=== PATIENT | male | born 1935 | race Two or more races ===

== ENCOUNTER 2016-07-17 13:11 | Outpatient (CLI) | payer MEDICARE, OTHER ==
[2016-07-17] MEDS ORDERED: CHLORHEXIDINE FL1 M1 MC (15:51)
[2016-07-17] MEDS ORDERED: PATADAY2.5 ML OP (15:51)
[2016-07-17] MEDS ORDERED: FISH OIL300 M1 PO (15:51)
[2016-07-17] MEDS ORDERED: TAMSULOSIN HCL0.4 MG ORAL (15:51)
[2016-07-17] MEDS ORDERED: NASONEX17 GM NASAL (15:51)
[2016-07-17] MEDS ORDERED: SYMBICORT 16010.2 G1 IH (15:51)
[2016-07-17] MEDS ORDERED: RESTASIS1 EACH BOTH EYES (15:51)
[2016-07-17] MEDS ORDERED: JOINT SUPPORT1 EACH PO (15:51)
[2016-07-17] MEDS ORDERED: LINZESS290 MCG PO (15:51)
[2016-07-17] MEDS ORDERED: SIMVASTATIN20 MG ORAL (15:51)
[2016-07-17] MEDS ORDERED: LORAZEPAM0.5 MG ORAL (15:51)
[2016-07-17] MEDS ORDERED: PROSCAR5 MG ORAL (15:51)
[2016-07-17] MEDS ORDERED: LEXAPRO10 MG ORAL (15:51)
[2016-07-17] MEDS ORDERED: VITAMIN D-40400 UNIT ORAL (15:51)
[2016-07-17] MEDS ORDERED: VOLTAREN100 G1 TP (15:51)
[2016-07-17] MEDS ORDERED: ASPIR 8181 MG ORAL (15:51)
[2016-07-17] MEDS ORDERED: MONTELUKAST SOD10 MG ORAL (15:51)
[2016-07-17] MEDS ORDERED: TURMERIC500 MG PO (15:51)
[2016-07-17] MEDS ORDERED: NEXIUM40 MG ORAL (15:51)
[2016-07-17] MEDS ORDERED: BENADRYL A12.5 MG/5 ORAL (15:51)
[2016-07-17] MEDS ORDERED: AMITIZA24 MCG ORAL (15:51)
[2016-07-17] MEDS ORDERED: VENTOLIN HFA18 GM INH (15:51)
--- NOTE | 2016-07-17 15:59 | GI Initial Consult Note ---
History of Present Illness General Date patient seen: July 17, 2016 Time patient seen: 13:00 Referring physician: JENNIFER Reason for Consultation: PEG EVALUATION Present Illness HPI 81 year old male being seen at [facility] presents today for evaluation for PEG. This patient has a complicated medical history, most recently dx with throat CA here with family to schedule GT placement. No general GI complaints at this time. Home Meds Reported Medications Cholecalciferol (Vitamin D3) (VITAMIN D-400*) 400 Unit Tablet, 400 UNITS ORAL DAILY, #10 TAB 0 Refills 07/17/16 Turmeric Root Extract (TURMERIC) 500 Mg Capsule, 500 MG PO, CAP 07/17/16 Tamsulosin Hcl (TAMSULOSIN HCL*) 0.4 Mg Cap.er.24h, 0.4 MG ORAL BEDTIME, CAP 07/17/16 Budesonide/Formoterol Fumarate (SYMBICORT 160-4.5 MCG INHALER) 10.2 Gm Hfa.aer.ad, 1 PUFF IH, #1 INH 0 Refills 07/17/16 Simvastatin (ZOCOR) 20 Mg Tablet, 20 MG ORAL BEDTIME, TAB 07/17/16 Cyclosporine (RESTASIS) 1 Each Droperette, 1 DROP BOTH EYES EVERY 12 HOURS, #1 EA 0 Refills 07/17/16 Olopatadine Hcl (PATADAY) 2.5 Ml Drops, 2.5 ML OP, ML 07/17/16 Esomeprazole Magnesium (NEXIUM) 40 Mg Capsule.dr, 40 MG ORAL DAILY, CAP 07/17/16 Mometasone Furoate (NASONEX) 17 Gm [place].pump, 2 SPRAYS NASAL DAILY, GM 0 Refills 07/17/16 Montelukast Sodium* (MONTELUKAST SODIUM*) 10 Mg Tablet, 10 MG ORAL DAILY, TAB 07/17/16 Lubiprostone (AMITIZA*) 24 Mcg Capsule, 24 MCG ORAL EVERY 12 HOURS, CAP 07/17/16 Lorazepam* (LORAZEPAM*) 0.5 Mg Tablet, 0.5 MG ORAL THREE TIMES A DAY, TAB 07/17/16 Linaclotide (LINZESS) 290 Mcg Capsule, 290 MCG PO, CAP 07/17/16 Escitalopram Oxalate* (LEXAPRO*) 10 Mg Tablet, 10 MG ORAL DAILY, TAB 07/17/16 Gluc/MSM/C/[place]/Manganese/Katarzyna (Joint Support Complex Softgel) 1 Each Capsule, 1 EACH PO, CAP 07/17/16 [place]-3 Fatty Acids (FISH OIL) 300 Mg Capsule, 300 MG PO, CAP 07/17/16 Finasteride* (PROSCAR*) 5 Mg Tablet, 5 MG ORAL DAILY, #30 TAB 0 Refills 07/17/16 Diclofenac Sodium (VOLTAREN) 100 Gm Gel..gram., 100 GM TP, GM 07/17/16 Chlorhexidine (CHLORHEXIDINE FLAVOR) 1 Ml Liquid, 1 ML MC, ML 07/17/16 Diphenhydramine Hcl* (BENADRYL ALLERGY*) 12.5 Mg/5 Ml Liquid, 12.5 MG ORAL Q6H Y , ML 0 Refills 07/17/16 Aspirin* (ASPIR 81*) 81 Mg Tablet.dr, 81 MG ORAL DAILY, TAB 07/17/16 Albuterol Sulfate (VENTOLIN HFA) Unknown Strength Hfa.aer.ad, INH EVERY 6 HOURS , #18 GM 0 Refills 07/17/16 Med list reviewed/reconciled: Yes Allergies: Coded Allergies: No Known Allergies (Unverified , 07/17/16) Patient History Limited by: medical condition History Provided By: Medical Record PMH Narrative CAD GERD COPD Laryngeal Squamous cell carcinoma, 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 New large RLL mass noted possible Lung CA vs metastasis Throat CA BPH Inguinal Hernia >> s/p repair May 20 2016 Constipation Hyperlipemia Severe bilateral knee OA Anxiety Asthma Iron Deficient Anemia PSHx Angioplasty Cardiac Stent Placement Hernia Repeair Inguinal Family History Narrative Mother - Asthma Social History: Reports: smoking - quit Social History Narrative Smoked less than a pack her day for 40 years, quit 10 years ago. Review of Systems All Other Systems: negative except mentioned in HPI Physical Exam T 97.2 BP 120/58 P 58 96 RA Unable to obtain weight General Appearance: well appearing, no apparent distress, alert Head: normocephalic EENT: normal ENT inspection Neck: supple Respiratory: no respiratory distress, other Cardiovascular: normal rate Gastrointestinal: soft Rectal: deferred Musculoskeletal: other - ambulation with walker Neurologic: alert, oriented x3, responsive Psychiatric: normal inspection Skin: normal inspection, normal color, no rash GI: Plan Problems: (1) Anxiety (2) Asthma (3) COPD (chronic obstructive pulmonary disease) (4) CAD (coronary artery disease) (5) BPH (benign prostatic hyperplasia) (6) GERD (gastroesophageal reflux disease) (7) Laryngeal cancer (8) Hyperlipemia (9) Encounter for PEG (percutaneous endoscopic gastrostomy) (10) Constipation Plan Pt refused to have PEG at this time, wants to wait. The patient's family all spoke together with Dr. Domingo regarding this decision on speaker phone. Family to contact us when patient has agreed. Seen with Dr. Domingo. Thank you for referring this patient. Sunita San N.P. July 17, 2016 15:59
== END 2016-07-17 13:39 | disposition home or self-care (01) ==
LOC: PAN 13:11
DX: K21.9 Gastro-esophageal reflux disease without esophagitis (principal); F41.9 Anxiety disorder, unspecified; J45.909 Unspecified asthma, uncomplicated; J44.9 Chronic obstructive pulmonary disease, unspecified; I25.10 Atherosclerotic heart disease of native coronary artery without angina pectoris; N40.0 Benign prostatic hyperplasia without lower urinary tract symptoms; C32.9 Malignant neoplasm of larynx, unspecified; E78.5 Hyperlipidemia, unspecified; K59.00 Constipation, unspecified; Z79.82 Long term (current) use of aspirin; M17.0 Bilateral primary osteoarthritis of knee; Z95.5 Presence of coronary angioplasty implant and graft; Z87.891 Personal history of nicotine dependence
CPT/HCPCS: 99201

== ENCOUNTER 2016-09-30 14:24 | Outpatient (CLI) | payer MEDICARE, OTHER ==
[~2016-09-30 14:24] MED LIST: AMITIZA24 MCG ORAL; ASPIR 8181 MG ORAL; BENADRYL A12.5 MG/5 ORAL; CHLORHEXIDINE FL1 M1 MC; FISH OIL300 M1 PO; JOINT SUPPORT1 EACH PO; LEXAPRO10 MG ORAL; LINZESS290 MCG PO; LORAZEPAM0.5 MG ORAL; MONTELUKAST SOD10 MG ORAL; NASONEX17 GM NASAL; NEXIUM40 MG ORAL; PATADAY2.5 ML OP; PROSCAR5 MG ORAL; RESTASIS1 EACH BOTH EYES; SIMVASTATIN20 MG ORAL; SYMBICORT 16010.2 G1 IH; TAMSULOSIN HCL0.4 MG ORAL; TURMERIC500 MG PO; VENTOLIN HFA18 GM INH; VITAMIN D-40400 UNIT ORAL; VOLTAREN100 G1 TP
--- NOTE | 2016-09-30 15:25 | Diagnostic Imaging Report ---
Indication: COUGH Technique: Two views of the chest Comparison: none Findings: Opacity in right lower lobe measures 5 by 1.5 cm. Is another superior surface, appears somewhat ovoid inferiorly. The lungs are equivocally minimally hyperinflated. There is mild central bronchial wall thickening. There is some scarring at the left lung base. Lungs and pleural spaces are otherwise clear. The heart size is normal. The aorta is tortuous Impression: 5 x 1.5 cm right lower lobe opacity. Appearance nonspecific. Could represent neoplasm, scarring, or atelectasis. Per discussion with referring physician, patient does have a history of lung neoplasm is improving with treatment. Correlate with any prior studies which may be available and relevant Hyperinflation, consistent with COPD No acute infiltrate Findings discussed by phone with Dr. Medina at the time of interpretation
== END 2016-09-30 16:24 | disposition home or self-care (01) ==
LOC: RAD 14:24
DX: R05 Cough (principal)
CPT/HCPCS: 71020

== ENCOUNTER 2016-10-14 14:36 | Outpatient (CLI) | payer MEDICARE, OTHER ==
--- NOTE | 2016-10-14 15:57 | Diagnostic Imaging Report ---
Indications: COUGH Technique: PA and lateral chest Findings: Comparison: 82,017 Linear densities persist in both lung bases. Focal alveolar consolidation persists in the posterior basal region of one of the lungs on lateral view. Small partially circumscribed nodule persists in/over each lung base. No new pulmonary parenchymal abnormality is demonstrated. No pleural disease is evident. Heart size and pulmonary vasculature remain within normal limits. Aortic arch calcification and tortuosity, thoracic vertebral osteophytes, cephalad subluxation of both humeri narrowing the respective subacromial spaces all unchanged. IMPRESSION: Persistent alveolar opacity in one of the lung bases on lateral view, likely right, atelectasis versus pneumonia Superimposed subsegmental atelectasis versus scarring in both lung bases, stable Bibasal symmetric small nodular densities likely nipple shadows, stable, Aortosclerosis and probable chronic hypertensive change, stable Degenerative spondylosis Evidence of bilateral chronic rotator cuff insufficiency
== END 2016-10-14 16:36 | disposition home or self-care (01) ==
LOC: RAD 14:36
DX: R05 Cough (principal); M47.9 Spondylosis, unspecified; I70.0 Atherosclerosis of aorta
CPT/HCPCS: 71020

== ENCOUNTER 2017-03-10 00:51 | Inpatient (IN) | payer MEDICARE, MEDICAID ==
[~2017-03-10] VITALS: Ht 167.6 cm; Wt 62.1 kg
[2017-03-10] VITALS (8 sets, daily range): BP systolic 101–124; BP diastolic 54–64
[2017-03-10] MEDS ORDERED: Ipratropium 0.02% Inh Soln 2.5ml UD HHN ONE (01:15)
[2017-03-10] MEDS ORDERED: Albuterol ud Inhalation HHN ONE (01:15)
--- NOTE | 2017-03-10 01:20 | Emergency Room Report ---
History of Present Illness General Chief Complaint: Dyspnea/Respdistress Source: Family Member Present Illness HPI Patient presents with paramedics for reports of shortness of breath Patient has extensive history of throat cancer and lung cancer patient is on immunotherapy Has also had previous radiation about one year ago for the throat Patient appears to have been short of breath throughout the day At nighttime appear to worsen and was brought in by paramedics at this time feels somewhat better Denies any chest pain Denies any back or flank pain reports the patient has had chronic cough no obvious change from baseline Unknown regarding fever however here the patient did have a documented fever orally Allergies: Coded Allergies: SULFA (SULFONAMIDE ANTIBIOTICS) (Unverified Allergy, Unknown, 03/10/17) Patient History Past Medical History: see triage record Pertinent Family History: none Reviewed Nursing Documentation: PMH: Agreed, PSxH: Agreed Nursing Documentation-PMH Hx Asthma: Yes Hx Cancer: Yes - LUNG /THROAT CA Review of Systems All Other Systems: negative except mentioned in HPI Physical Exam Vital Signs Date Time Temp Pulse Resp B/P (MAP) Pulse Ox O2 Delivery O2 Flow Rate FiO2 03/10/17 01:00 101.8 80 18 119/56 93 Room Air Sp02 EP Interpretation: reviewed, normal General Appearance: no apparent distress Head: normocephalic, atraumatic Eyes: bilateral eye PERRL, bilateral eye EOMI ENT: hearing grossly normal, other - No obvious stridor, poor dentition Neck: supple Respiratory: no retraction, no accessory muscle use, crackles - In lower lobes Cardiovascular #1: regular rate, rhythm, no edema Gastrointestinal: non tender, soft Musculoskeletal: normal inspection Neurologic: normal inspection, alert Skin: normal color, no rash Lymphatic: no adenopathy Medical Decision Making Diagnostic Impression: Primary Impression: Hypoxia Additional Impression: Pneumonia ER Course Patient is a fairly complex patient with multiple differential to consideration including but not limited to cardiac cardiopulmonary and vascular emergencies Patient's x-ray imaging as compared to September shows worsening markings in the lower lobes especially on the right side patient has done better with breathing treatment and oxygenation Patient also provided with steroids at this time the patient's physician was contacted on [address] reyes as there is no phone call back patient required admission and was 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 Labs Test 03/10/17 01:15 White Blood Count 14.6 K/UL (4.8-10.8) Red Blood Count 4.20 M/UL (4.70-6.10) Hemoglobin 13.6 G/DL (14.2-18.0) Hematocrit 38.7 % (42.0-52.0) Mean Corpuscular Volume 92 FL (80-99) Mean Corpuscular Hemoglobin 32.5 PG (27.0-31.0) Mean Corpuscular Hemoglobin Concent 35.3 G/DL (32.0-36.0) Red Cell Distribution Width 12.3 % (11.6-14.8) Platelet Count 190 K/UL (150-450) Mean Platelet Volume 6.8 FL (6.5-10.1) Neutrophils (%) (Auto) % (45.0-75.0) Lymphocytes (%) (Auto) % (20.0-45.0) Monocytes (%) (Auto) % (1.0-10.0) Eosinophils (%) (Auto) % (0.0-3.0) Basophils (%) (Auto) % (0.0-2.0) Sodium Level 132 MMOL/L (136-145) Potassium Level 3.6 MMOL/L (3.5-5.1) Chloride Level 98 MMOL/L (98-107) Carbon Dioxide Level 26 MMOL/L (21-32) Anion Gap 8 mmol/L (5-15) Blood Urea Nitrogen 19 mg/dL (7-18) Creatinine 0.8 MG/DL (0.55-1.30) Estimat Glomerular Filtration Rate mL/min (>60) Glucose Level 106 MG/DL (74-106) Lactic Acid Level 0.80 mmol/L (0.66-2.22) Calcium Level 9.0 MG/DL (8.5-10.1) Total Bilirubin 0.9 MG/DL (0.2-1.0) Aspartate Amino Transf (AST/SGOT) 15 U/L (15-37) Alanine Aminotransferase (ALT/SGPT) 18 U/L (12-78) Alkaline Phosphatase 64 U/L (46-116) Total Creatine Kinase 61 U/L (26-308) Creatine Kinase MB 2.5 NG/ML (0.0-3.6) Creatine Kinase MB Relative Index 4.0 Troponin I 0.014 ng/mL (0.000-0.056) Pro-B-Type Natriuretic Peptide 1065 pg/mL (0-125) Total Protein 6.9 G/DL (6.4-8.2) Albumin 3.5 G/DL (3.4-5.0) Globulin 3.4 g/dL Albumin/Globulin Ratio 1.0 (1.0-2.7) Lipase 89 U/L (73-393) Rhythm Strip Diag. Results EP Interpretation: yes Rate: 78 Rhythm: NSR, no PVC's, no ectopy Chest X-Ray Diagnostic Results Chest X-Ray Diagnostic Results : Chest X-Ray Ordered: Yes # of Views/Limited/Complete: 1 View Indication: Shortness of Breath EP Interpretation: Yes Interpretation: no effusion, no pneumothorax, other - Increased markings both lower lobes, more in the right lower lobe Impression: Other - Bilateral lower lobe markings, increased right lower lobe Electronically Signed by: Filipe Bhagat DO Last Vital Signs Date Time Temp Pulse Resp B/P (MAP) Pulse Ox O2 Delivery O2 Flow Rate FiO2 03/10/17 01:00 101.8 80 18 119/56 93 Room Air Status: improved Disposition: ADMITTED INPATIENT Condition: Serious FILIPE BHAGAT D.O. Mar 10, 2017 01:20
[2017-03-10] MEDS ORDERED: PANTOPRAZOLE SO40 MG ORAL (01:35)
[2017-03-10] MEDS ORDERED: MELOXICAM15 MG PO (01:36)
[2017-03-10 01:38] LABS: HEMATOCRIT 38.7 % (42.0-52.0); HEMOGLOBIN 13.6 G/DL (14.2-18.0); MEAN CORPUSCULAR VOLUME 92 FL (80-99); PLATELET COUNT 190 K/UL (150-450); RED CELL DISTRIBUTION WIDTH 12.3 % (11.6-14.8); WHITE BLOOD COUNT 14.6 K/UL (4.8-10.8)
[2017-03-10] MEDS ORDERED: Dexamethasone 4mg/ml vial IVP ONE (01:45)
[2017-03-10 01:47] LABS: ANION GAP 8 mmol/L (5-15); BLOOD UREA NITROGEN 19 mg/dL (7-18); CARBON DIOXIDE 26 MMOL/L (21-32); CHLORIDE 98 MMOL/L (98-107); CREATININE 0.8 MG/DL (0.55-1.30); POTASSIUM 3.6 MMOL/L (3.5-5.1); SODIUM 132 MMOL/L (136-145)
[2017-03-10 02:03] LABS: ALANINE AMINOTRANSFERASE 18 U/L (12-78); ALBUMIN 3.5 G/DL (3.4-5.0); ALKALINE PHOSPHATASE 64 U/L (46-116); ASPARTATE AMINO TRANSFERASE 15 U/L (15-37); BILIRUBIN,TOTAL 0.9 MG/DL (0.2-1.0); CKMB 2.5 NG/ML (0.0-3.6); CREATINE KINASE 61 U/L (26-308)
[2017-03-10] MEDS ORDERED: Miralax 17gm pkt ORAL PRN (07:30)
[2017-03-10] MEDS ORDERED: Nitroglycerin Subl 0.4mg tab SL PRN (07:30)
[2017-03-10] MEDS ORDERED: Mylanta II UD 30ml ORAL PRN (07:30)
[2017-03-10] MEDS ORDERED: Promethazine/Codeine 5ml UD ORAL PRN (07:30)
[2017-03-10] MEDS: Aspirin EC 81mg tab ORAL SCH (09:00)
[2017-03-10] MEDS ORDERED: Cefepime HCl 1 GM in D5W 55 ML IV SCH (09:00)
[2017-03-10] MEDS ORDERED: Vancomycin 1250mg/D5W 250ml IVPB ONE (10:30)
--- NOTE | 2017-03-10 11:43 | Consultation ---
Consult Note Consult Note ID DIC # [id number] YANDY PASTOR M.D. Mar 10, 2017 11:43
[2017-03-10] MEDS: Heparin 5000 units/ml inj SUBQ SCH ×2 (11:49→21:17)
--- NOTE | 2017-03-10 12:28 | Diagnostic Imaging Report ---
Indication: Dyspnea Comparison: 10/14/2016 A single view chest radiograph was obtained. Findings: Perihilar and basilar interstitial markings are prominent. Heart is of prominent size. Bones are osteopenic. No pleural effusion seen. IMPRESSION: Prominent basilar interstitial markings nonspecific.
[2017-03-10] MEDS ORDERED: Piperacillin/Tazobactam 3.375 GM in D5W 110 ML IVPB SCH (14:00)
--- NOTE | 2017-03-10 15:38 | History and Physical ---
History of Present Illness General Date patient seen: Mar 10, 2017 Reason for Hospitalization: Dyspnea/Respdistress Present Illness HPI 82 year old patient with extensive history of throat cancer and lung cancer presented to ER with CC of shortness of breath Patient appears to have been short of breath throughout the day. He had a temp of 101. His CXR showed chronic changes. He is admitted for w/u of his fever, especially that he is under immunotherapy for his cancer. Allergies: Coded Allergies: SULFA (SULFONAMIDE ANTIBIOTICS) (Unverified Allergy, Unknown, 03/10/17) Medication History Scheduled Albuterol Sulfate (Ventolin Hfa), Unknown Dose INH EVERY 6 HOURS, (Reported) Aspirin* (Aspir 81*), 81 MG ORAL DAILY, (Reported) Cholecalciferol (Vitamin D3) (Vitamin D-400*), 400 UNITS ORAL DAILY, (Reported) Cyclosporine (Restasis), 1 DROP BOTH EYES EVERY 12 HOURS, (Reported) Escitalopram Oxalate* (Lexapro*), 10 MG ORAL DAILY, (Reported) Esomeprazole Magnesium (Nexium), 40 MG ORAL DAILY, (Reported) Finasteride* (Proscar*), 5 MG ORAL DAILY, (Reported) Lorazepam* (Lorazepam*), 0.5 MG ORAL THREE TIMES A DAY, (Reported) Lubiprostone (Amitiza*), 24 MCG ORAL EVERY 12 HOURS, (Reported) Meloxicam* (Meloxicam*), 15 MG PO DAILY, (Reported) Mometasone Furoate (Nasonex), 2 SPRAYS NASAL DAILY, (Reported) Montelukast Sodium* (Montelukast Sodium*), 10 MG ORAL DAILY, (Reported) Pantoprazole* (Pantoprazole*), 40 MG ORAL DAILY, (Reported) Simvastatin (Zocor), 20 MG ORAL BEDTIME, (Reported) Tamsulosin Hcl (Tamsulosin Hcl*), 0.4 MG ORAL BEDTIME, (Reported) Scheduled PRN Diphenhydramine Hcl* (Benadryl Allergy*), 12.5 MG ORAL Q6H PRN, (Reported) Miscellaneous Medications Budesonide/Formoterol Fumarate (Symbicort 160-4.5 Mcg Inhaler), 1 PUFF IH, ( Reported) Chlorhexidine (Chlorhexidine Flavor), 1 ML MC, (Reported) Diclofenac Sodium (Voltaren), 100 GM TP, (Reported) Gluc/MSM/C/[place]/Manganese/Katarzyna (Joint Support Complex Softgel), 1 EACH PO, ( Reported) Linaclotide (Linzess), 290 MCG PO, (Reported) Olopatadine Hcl (Pataday), 2.5 ML OP, (Reported) [place]-3 Fatty Acids (Fish Oil), 300 MG PO, (Reported) Turmeric Root Extract (Turmeric), 500 MG PO, (Reported) Patient History Healthcare decision maker Resuscitation status Full Code Advanced Directive on File will bring the copy Past Medical/Surgical History Past Medical/Surgical History: (1) Asthma (2) CAD (coronary artery disease) (3) Laryngeal cancer (4) COPD (chronic obstructive pulmonary disease) Review of Systems All Other Systems: negative except mentioned in HPI Physical Exam General Appearance: cachetic Lines, tubes and drains: peripheral HEENT: normocephalic, atraumatic Neck: non-tender, supple Respiratory/Chest: chest wall non-tender, normal breath sounds Breasts: no masses Cardiovascular/Chest: normal rate, regular rhythm Abdomen: normal bowel sounds, non tender Genitourinary/Rectal: normal genital exam Extremities: normal range of motion, non-tender Skin Exam: normal pigmentation Last 24 Hour Vital Signs Date Time Temp Pulse Resp B/P (MAP) Pulse Ox O2 Delivery O2 Flow Rate FiO2 03/10/17 12:00 97.8 54 19 101/56 96 03/10/17 08:30 57 20 108/58 95 Nasal Cannula 3.0 28 03/10/17 08:30 57 20 108/58 95 Nasal Cannula 3.0 03/10/17 07:04 98.8 60 23 111/57 94 Nasal Cannula 3.0 03/10/17 05:04 99.0 60 20 109/54 96 Nasal Cannula 3.0 03/10/17 03:04 99.0 68 16 111/55 95 Nasal Cannula 3.0 03/10/17 01:26 80 24 94 Nasal Cannula 2.0 28 03/10/17 01:04 80 18 Room Air 03/10/17 01:04 101.8 75 18 119/56 93 Room Air 03/10/17 01:00 101.8 80 18 119/56 93 Room Air Intake and Output 03/09/17 03/10/17 19:00 07:00 Intake Total 150 ml Balance 150 ml Intake IV Total 150 ml Laboratory Tests Test 03/10/17 01:15 White Blood Count 14.6 K/UL (4.8-10.8) H Red Blood Count 4.20 M/UL (4.70-6.10) L Hemoglobin 13.6 G/DL (14.2-18.0) L Hematocrit 38.7 % (42.0-52.0) L Mean Corpuscular Volume 92 FL (80-99) Mean Corpuscular Hemoglobin 32.5 PG (27.0-31.0) H Mean Corpuscular Hemoglobin Concent 35.3 G/DL (32.0-36.0) Red Cell Distribution Width 12.3 % (11.6-14.8) Platelet Count 190 K/UL (150-450) Mean Platelet Volume 6.8 FL (6.5-10.1) Neutrophils (%) (Auto) % (45.0-75.0) Lymphocytes (%) (Auto) % (20.0-45.0) Monocytes (%) (Auto) % (1.0-10.0) Eosinophils (%) (Auto) % (0.0-3.0) Basophils (%) (Auto) % (0.0-2.0) Sodium Level 132 MMOL/L (136-145) L Potassium Level 3.6 MMOL/L (3.5-5.1) Chloride Level 98 MMOL/L (98-107) Carbon Dioxide Level 26 MMOL/L (21-32) Anion Gap 8 mmol/L (5-15) Blood Urea Nitrogen 19 mg/dL (7-18) H Creatinine 0.8 MG/DL (0.55-1.30) Estimat Glomerular Filtration Rate mL/min (>60) Glucose Level 106 MG/DL (74-106) Lactic Acid Level 0.80 mmol/L (0.66-2.22) Calcium Level 9.0 MG/DL (8.5-10.1) Total Bilirubin 0.9 MG/DL (0.2-1.0) Aspartate Amino Transf (AST/SGOT) 15 U/L (15-37) Alanine Aminotransferase (ALT/SGPT) 18 U/L (12-78) Alkaline Phosphatase 64 U/L (46-116) Total Creatine Kinase 61 U/L (26-308) Creatine Kinase MB 2.5 NG/ML (0.0-3.6) Creatine Kinase MB Relative Index 4.0 Troponin I 0.014 ng/mL (0.000-0.056) Pro-B-Type Natriuretic Peptide 1065 pg/mL (0-125) H Total Protein 6.9 G/DL (6.4-8.2) Albumin 3.5 G/DL (3.4-5.0) Globulin 3.4 g/dL Albumin/Globulin Ratio 1.0 (1.0-2.7) Lipase 89 U/L (73-393) Microbiology Date/Time Source Procedure Growth Status 03/10/17 01:18 Nasal Nares Influenza Types A,B Antigen (MARYSOL) - Final Complete Height (Feet): 5 Height (Inches): 6.00 Weight (Pounds): 137 Medications Current Medications Medications (Trade) Dose Ordered Sig/[place] Route PRN Reason Start Time Stop Time Status Last Admin Dose Admin Acetaminophen (Tylenol) 650 mg Q4H PRN ORAL fever 03/10/17 07:30 04/09/17 07:29 Al Hydroxide/Mg Hydroxide (Mylanta II) 30 ml Q6H PRN ORAL dyspepsia 03/10/17 07:30 04/09/17 07:29 Albuterol/ Ipratropium (Albuterol/ Ipratropium) 3 ml EVERY 4 HOURS PRN HHN Shortness of Breath 03/10/17 07:30 03/15/17 07:29 Aspirin (Ecotrin) 81 mg DAILY ORAL 03/10/17 09:00 04/09/17 08:59 Escitalopram Oxalate (Lexapro) 10 mg DAILY ORAL 03/10/17 09:00 04/09/17 08:59 Finasteride (Proscar) 5 mg DAILY ORAL 03/10/17 09:00 04/09/17 08:59 Fluconazole 50 ml @ 50 mls/hr Q24H IV 03/10/17 14:00 03/17/17 13:59 03/10/17 15:22 Heparin Sodium (Porcine) (Heparin 5000 units/ml) 5,000 units EVERY 12 HOURS SUBQ 03/10/17 09:00 04/09/17 08:59 03/10/17 11:49 Levofloxacin 150 ml @ 100 mls/hr Q24H IVPB 03/10/17 13:00 03/17/17 12:59 03/10/17 13:53 Nitroglycerin (Ntg) 0.4 mg Q5M PRN SL Prn Chest Pain 03/10/17 07:30 04/09/17 07:29 Ondansetron HCl (Zofran) 4 mg Q6H PRN IVP Nausea & Vomiting 03/10/17 07:30 04/09/17 07:29 Piperacillin Sod/ Tazobactam Sod 3.375 gm/Sodium Chloride 110 ml @ 27.5 mls/hr EVERY 8 HOURS IVPB 03/10/17 14:00 03/15/17 13:59 Polyethylene Glycol (Miralax) 17 gm DAILYPRN PRN ORAL Constipation 03/10/17 07:30 04/09/17 07:29 Promethazine HCl/ Codeine (Phenergan with Codeine) 5 ml Q4H PRN ORAL For Cough 03/10/17 07:30 04/09/17 07:29 Tamsulosin HCl (Flomax) 0.4 mg BEDTIME ORAL 03/10/17 21:00 04/09/17 20:59 Temazepam (Restoril) 15 mg HSPRN PRN ORAL Insomnia 03/10/17 07:30 03/17/17 07:29 Assessment/Plan Problem List: (1) Pneumonia ICD Codes: J18.9 - Pneumonia, unspecified organism SNOMED: 585478002 (2) COPD (chronic obstructive pulmonary disease) ICD Codes: J44.9 - Chronic obstructive pulmonary disease, unspecified SNOMED: 20238025 (3) Laryngeal cancer ICD Codes: C32.9 - Malignant neoplasm of larynx, unspecified SNOMED: 544269418 (4) CAD (coronary artery disease) ICD Codes: I25.10 - Atherosclerotic heart disease of [place] coronary artery without angina pectoris SNOMED: 82911579 Assessment/Plan NPO respiratory treamtnet iv abx swallow study titrate fio2 check electrolytes . QIAN GARCIA Mar 10, 2017 15:38
[2017-03-10] MEDS: Zoysn 3.37gm in NS 100ML IVPB SCH ×2 (16:43→21:16)
[2017-03-10] MEDS: Albuterol/Ipratropium 3ml neb HHN PRN (17:00)
--- NOTE | 2017-03-10 17:15 | Consultation ---
DATE OF CONSULTATION: 03/10/2017 INFECTIOUS DISEASES CONSULTATION CONSULTING PHYSICIAN: Umer Britton M.D. REFERRING PHYSICIAN: Lew Lowe M.D. REASON FOR CONSULTATION: Evaluation of patient for fever, sepsis, possible pneumonia, antibiotic management. HISTORY OF PRESENT ILLNESS: The patient is an 82-year-old male with multiple medical problems as listed below who was admitted to this medical center due to shortness of breath and weakness. The patient was found to be febrile, have leukocytosis. Infectious Diseases consultation requested for further evaluation of the patient. The patient's history is mostly obtained from the patient's at the bedside. 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 The patient developed fever on the day of admission and increased weakness. The patient has chronic cough that has worsened recently. The patient was treated recently with Augmentin for possible pneumonia by his oncologist. PAST MEDICAL HISTORY: Significant for 1. Throat and lung cancer. 2. Musculoskeletal, the patient has chronic knee pain. 3. History of depression. MEDICATIONS: IV vancomycin and cefepime. ALLERGIES: Sulfa. FAMILY HISTORY: The patient's had flu-like syndrome about two weeks prior to the admission. REVIEW OF SYSTEMS: GENERAL: The patient has weakness. PULMONARY: As mentioned above. CARDIOVASCULAR: No chest pain. GASTROINTESTINAL/ABDOMEN: No nausea, vomiting, or diarrhea. GENITOURINARY: No dysuria. MUSCULOSKELETAL: No edema. NEUROLOGIC: No history of seizure. PHYSICAL EXAMINATION: VITAL SIGNS: Temperature max 101.8 degrees, temperature 98.8 degrees, blood pressure 111/57, pulse 86, and respiratory rate 18. HEENT: The patient has oral thrush. NECK: No lymphadenopathy. CHEST: Coarse breathing sounds. HEART: S1 and S2. ABDOMEN: Soft and nontender. EXTREMITIES: No cyanosis. SKIN: The patient has sporadic rashes over the back, but are not red, suggestive of macules. NEUROLOGIC: Awake and alert, however lethargic. LABORATORY AND DIAGNOSTIC DATA: White blood cell 14, hemoglobin 13, and platelet 190. BUN 19 and creatinine 0.8. Liver function tests are unremarkable. BNP 1000. Rapid influenza test negative for A and B. Chest x-ray report is pending. ASSESSMENT: The patient is a 82-year-old male with 1. Fever. 2. Leukocytosis. 3. Possible underlying community-acquired pneumonia that was partially treated with Augmentin. 4. Rule out bacteremia and urinary tract infection. PLAN: 1. We will continue the patient on cefepime. We will add Levaquin for atypical coverage, discontinue vancomycin. 2. Monitor CBC. 3. Monitor BMP. 4. Monitor cultures (blood, urine, and sputum). 5. Monitor chest x-ray. 6. We will add Diflucan for oral thrush. 7. Based on the patient's clinical course and laboratories, we will do further recommendation. Thank you, Dr. Lowe, for allowing me to participate in the care of this patient. I will follow the patient with you during this hospitalization. Umer Britton M.D. DR: LAWSON JOB#: [id number] CC:
--- NOTE | 2017-03-10 17:44 | Cardiology Report ---
APPROVED REPORT EKG Measurement Heart [id number] Sinus rhythm with premature supraventricular complexes Septal infarct, age undetermined Abnormal ECG
[2017-03-10] MEDS: Tamsulosin 0.4mg cap ORAL SCH (21:16)
[2017-03-10] MEDS ORDERED: Vancomycin 750mg/NS 250ml IVPB SCH (22:00)
[2017-03-11 04:00] VITALS: BP 121/67
[2017-03-11] MEDS: Zoysn 3.37gm in NS 100ML IVPB SCH ×3 (04:29→23:30)
[2017-03-11 08:15] LABS: BASOPHILS % (AUTO) 0.5 % (0.0-2.0); EOSINOPHILS % (AUTO) 0.8 % (0.0-3.0); HEMATOCRIT 36.5 % (42.0-52.0); HEMOGLOBIN 12.4 G/DL (14.2-18.0); LYMPHOCYTES % (AUTO) 8.9 % (20.0-45.0); MEAN CORPUSCULAR VOLUME 94 FL (80-99); MONOCYTES % (AUTO) 8.9 % (1.0-10.0); NEUTROPHILS % (AUTO) 80.9 % (45.0-75.0); PLATELET COUNT 159 K/UL (150-450); RED BLOOD COUNT 3.87 M/UL (4.70-6.10); RED CELL DISTRIBUTION WIDTH 12.2 % (11.6-14.8); WHITE BLOOD COUNT 7.9 K/UL (4.8-10.8)
[2017-03-11 08:20] LABS: ALBUMIN 2.9 G/DL (3.4-5.0); ANION GAP 4 mmol/L (5-15); BLOOD UREA NITROGEN 15 mg/dL (7-18); CALCIUM 9.2 MG/DL (8.5-10.1); CARBON DIOXIDE 30 MMOL/L (21-32); CHLORIDE 101 MMOL/L (98-107); CREATININE 0.7 MG/DL (0.55-1.30); PHOSPHORUS 2.7 MG/DL (2.5-4.9); POTASSIUM 3.7 MMOL/L (3.5-5.1); SODIUM 135 MMOL/L (136-145)
[2017-03-11 08:28] VITALS: BP 136/63
[2017-03-11] MEDS: Aspirin EC 81mg tab ORAL SCH (08:47)
[2017-03-11] MEDS: Heparin 5000 units/ml inj SUBQ SCH ×2 (08:48→20:23)
--- NOTE | 2017-03-11 11:16 | Infectious Diseases Prog Note ---
Assessment/Plan Assessment/Plan ASSESSMENT: The patient is a 82-year-old male with Fever, SP Leukocytosis , SP Possible underlying community-acquired pneumonia vs Asp Pneum Oral thrush Rule out bacteremia and urinary tract infection. Throat and ? lung cancer Chronic knee pain depression. PLAN: We will continue Zosyn and Levaquin d# 2 / , Cont Diflucan d# 2 / ok to DC on Flagyl and Levaquin x 5 d and cont Diflucan ( Rx in chart ) Monitor CBC. Monitor BMP. Monitor cultures (blood, urine, and sputum) Monitor chest x-ray. Subjective Allergies: Coded Allergies: SULFA (SULFONAMIDE ANTIBIOTICS) (Unverified Allergy, Unknown, 03/10/17) Subjective Feeling better Objective Vital Signs Last 24 Hour Vital Signs Date Time Temp Pulse Resp B/P (MAP) Pulse Ox O2 Delivery O2 Flow Rate FiO2 03/11/17 08:28 98.2 57 20 136/63 96 03/11/17 04:00 97.5 69 21 121/67 95 03/11/17 04:00 Room Air 03/11/17 00:00 Nasal Cannula 2.0 03/10/17 20:00 97.8 54 21 117/58 94 03/10/17 20:00 Nasal Cannula 2.0 03/10/17 17:09 61 20 99 Nasal Cannula 2.0 28 03/10/17 17:00 57 20 97 Nasal Cannula 2.0 28 03/10/17 15:53 97.5 55 21 124/64 97 Nasal Cannula 2.0 03/10/17 12:00 97.8 54 19 101/56 96 Height (Feet): 5 Height (Inches): 6.00 Weight (Pounds): 137 HEENT: anicteric Cardiovascular: regular rhythm Abdomen: non distended Microbiology Date/Time Source Procedure Growth Status 03/10/17 01:20 Blood Blood Culture - Preliminary NO GROWTH AFTER 24 HOURS Resulted 03/10/17 01:15 Blood Blood Culture - Preliminary NO GROWTH AFTER 24 HOURS Resulted 03/10/17 18:00 Sputum Gram Stain - Final Resulted 03/10/17 18:00 Sputum Sputum Culture Pending Resulted 03/10/17 01:18 Nasal Nares Influenza Types A,B Antigen (MARYSOL) - Final Complete 03/10/17 12:30 Urine,Clean Catch Urine Culture - Preliminary NO GROWTH Resulted Laboratory Tests Test 03/11/17 06:54 White Blood Count 7.9 K/UL (4.8-10.8) Red Blood Count 3.87 M/UL (4.70-6.10) L Hemoglobin 12.4 G/DL (14.2-18.0) L Hematocrit 36.5 % (42.0-52.0) L Mean Corpuscular Volume 94 FL (80-99) Mean Corpuscular Hemoglobin 32.0 PG (27.0-31.0) H Mean Corpuscular Hemoglobin Concent 33.9 G/DL (32.0-36.0) Red Cell Distribution Width 12.2 % (11.6-14.8) Platelet Count 159 K/UL (150-450) Mean Platelet Volume 7.5 FL (6.5-10.1) Neutrophils (%) (Auto) 80.9 % (45.0-75.0) H Lymphocytes (%) (Auto) 8.9 % (20.0-45.0) L Monocytes (%) (Auto) 8.9 % (1.0-10.0) Eosinophils (%) (Auto) 0.8 % (0.0-3.0) Basophils (%) (Auto) 0.5 % (0.0-2.0) Sodium Level 135 MMOL/L (136-145) L Potassium Level 3.7 MMOL/L (3.5-5.1) Chloride Level 101 MMOL/L (98-107) Carbon Dioxide Level 30 MMOL/L (21-32) Anion Gap 4 mmol/L (5-15) L Blood Urea Nitrogen 15 mg/dL (7-18) Creatinine 0.7 MG/DL (0.55-1.30) Estimat Glomerular Filtration Rate mL/min (>60) Glucose Level 90 MG/DL (74-106) Calcium Level 9.2 MG/DL (8.5-10.1) Phosphorus Level 2.7 MG/DL (2.5-4.9) C-Reactive Protein, Quantitative 11.9 mg/dL (0.00-0.90) H Albumin 2.9 G/DL (3.4-5.0) L Current Medications Medications (Trade) Dose Ordered Sig/Solis Route PRN Reason Start Time Stop Time Status Last Admin Dose Admin Acetaminophen (Tylenol) 650 mg Q4H PRN ORAL fever 03/10/17 07:30 04/09/17 07:29 Al Hydroxide/Mg Hydroxide (Mylanta II) 30 ml Q6H PRN ORAL dyspepsia 03/10/17 07:30 04/09/17 07:29 Albuterol/ Ipratropium (Albuterol/ Ipratropium) 3 ml EVERY 4 HOURS PRN HHN Shortness of Breath 03/10/17 07:30 03/15/17 07:29 03/10/17 17:00 Aspirin (Ecotrin) 81 mg DAILY ORAL 03/10/17 09:00 04/09/17 08:59 03/11/17 08:47 Escitalopram Oxalate (Lexapro) 10 mg DAILY ORAL 03/10/17 09:00 04/09/17 08:59 03/11/17 08:47 Finasteride (Proscar) 5 mg DAILY ORAL 03/10/17 09:00 04/09/17 08:59 03/11/17 08:47 Fluconazole 50 ml @ 50 mls/hr Q24H IV 03/10/17 14:00 03/17/17 13:59 03/10/17 15:22 Heparin Sodium (Porcine) (Heparin 5000 units/ml) 5,000 units EVERY 12 HOURS SUBQ 03/10/17 09:00 04/09/17 08:59 03/11/17 08:48 Levofloxacin 150 ml @ 100 mls/hr Q24H IVPB 03/10/17 13:00 03/17/17 12:59 03/10/17 13:53 Nitroglycerin (Ntg) 0.4 mg Q5M PRN SL Prn Chest Pain 03/10/17 07:30 04/09/17 07:29 Ondansetron HCl (Zofran) 4 mg Q6H PRN IVP Nausea & Vomiting 03/10/17 07:30 04/09/17 07:29 Piperacillin Sod/ Tazobactam Sod 3.375 gm/Sodium Chloride 110 ml @ 27.5 mls/hr EVERY 8 HOURS IVPB 03/10/17 14:00 03/15/17 13:59 03/11/17 04:29 Polyethylene Glycol (Miralax) 17 gm DAILYPRN PRN ORAL Constipation 03/10/17 07:30 04/09/17 07:29 Promethazine HCl/ Codeine (Phenergan with Codeine) 5 ml Q4H PRN ORAL For Cough 03/10/17 07:30 04/09/17 07:29 Tamsulosin HCl (Flomax) 0.4 mg BEDTIME ORAL 03/10/17 21:00 04/09/17 20:59 03/10/17 21:16 Temazepam (Restoril) 15 mg HSPRN PRN ORAL Insomnia 03/10/17 07:30 03/17/17 07:29 03/10/17 21:16 YANDY PASTOR M.D. Mar 11, 2017 11:16
[2017-03-11 11:28] VITALS: BP 127/69
[2017-03-11 16:00] VITALS: BP 140/72
--- NOTE | 2017-03-11 16:40 | Pulmonology Progress Note ---
Assessment/Plan Problems: (1) Pneumonia (2) COPD (chronic obstructive pulmonary disease) (3) Laryngeal cancer (4) CAD (coronary artery disease) Assessment/Plan respiratory treatment continue abx check cultures titrate fio2 chest pt Subjective ROS Limited/Unobtainable: No Constitutional: Reports: no symptoms HEENT: Repors: no symptoms Respiratory: Reports: no symptoms Gastrointestinal/Abdominal: Reports: no symptoms Genitourinary: Reports: no symptoms Allergies: Coded Allergies: SULFA (SULFONAMIDE ANTIBIOTICS) (Unverified Allergy, Unknown, 03/10/17) Objective Last 24 Hour Vital Signs Date Time Temp Pulse Resp B/P (MAP) Pulse Ox O2 Delivery O2 Flow Rate FiO2 03/11/17 16:00 97.3 49 20 140/72 98 03/11/17 11:28 98.0 51 19 127/69 96 03/11/17 08:28 98.2 57 20 136/63 96 03/11/17 04:00 97.5 69 21 121/67 95 03/11/17 04:00 Room Air 03/11/17 00:00 Nasal Cannula 2.0 03/10/17 20:00 97.8 54 21 117/58 94 03/10/17 20:00 Nasal Cannula 2.0 03/10/17 17:09 61 20 99 Nasal Cannula 2.0 28 03/10/17 17:00 57 20 97 Nasal Cannula 2.0 28 Intake and Output 03/10/17 03/11/17 19:00 07:00 Intake Total 310.0 ml 137.5 ml Output Total 400 ml 600 ml Balance -90.0 ml -462.5 ml IV Total 310.0 ml 137.5 ml Other 0 ml Output Urine Total 400 ml 600 ml # Voids 1 General Appearance: WD/WN HEENT: normocephalic, atraumatic Respiratory/Chest: chest wall non-tender, lungs clear Cardiovascular: normal peripheral pulses, normal rate Abdomen: normal bowel sounds, no organomegaly, no scars Extremities: no cyanosis, no clubbing Skin: no rash 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 Lymphatic: no neck adenopathy Microbiology Date/Time Source Procedure Growth Status 03/10/17 01:20 Blood Blood Culture - Preliminary NO GROWTH AFTER 24 HOURS Resulted 03/10/17 01:15 Blood Blood Culture - Preliminary NO GROWTH AFTER 24 HOURS Resulted 03/10/17 18:00 Sputum Gram Stain - Final Resulted 03/10/17 18:00 Sputum Sputum Culture Pending Resulted 03/10/17 01:18 Nasal Nares Influenza Types A,B Antigen (MARYSOL) - Final Complete 03/10/17 12:30 Urine,Clean Catch Urine Culture - Preliminary NO GROWTH Resulted Laboratory Tests 03/11/17 06:54: White Blood Count 7.9, Red Blood Count 3.87L, Hemoglobin 12.4L, Hematocrit 36.5L , Mean Corpuscular Volume 94, Mean Corpuscular Hemoglobin 32.0H, Mean Corpuscular Hemoglobin Concent 33.9, Red Cell Distribution Width 12.2, Platelet Count 159, Mean Platelet Volume 7.5, Neutrophils (%) (Auto) 80.9H, Lymphocytes ( %) (Auto) 8.9L, Monocytes (%) (Auto) 8.9, Eosinophils (%) (Auto) 0.8, Basophils (%) (Auto) 0.5, Miscellaneous Test [Pending], Sodium Level 135L, Potassium Level 3.7, Chloride Level 101, Carbon Dioxide Level 30, Anion Gap 4L, Blood Urea Nitrogen 15, Creatinine 0.7, Estimat Glomerular Filtration Rate , Glucose Level 90, Calcium Level 9.2, Phosphorus Level 2.7, C-Reactive Protein, Quantitative 11.9H, Albumin 2.9L Current Medications Medications (Trade) Dose Ordered Sig/Solis Route PRN Reason Start Time Stop Time Status Last Admin Dose Admin Acetaminophen (Tylenol) 650 mg Q4H PRN ORAL fever 03/10/17 07:30 04/09/17 07:29 Al Hydroxide/Mg Hydroxide (Mylanta II) 30 ml Q6H PRN ORAL dyspepsia 03/10/17 07:30 04/09/17 07:29 Albuterol/ Ipratropium (Albuterol/ Ipratropium) 3 ml EVERY 4 HOURS PRN HHN Shortness of Breath 03/10/17 07:30 03/15/17 07:29 03/10/17 17:00 Aspirin (Ecotrin) 81 mg DAILY ORAL 03/10/17 09:00 04/09/17 08:59 03/11/17 08:47 Escitalopram Oxalate (Lexapro) 10 mg DAILY ORAL 03/10/17 09:00 04/09/17 08:59 03/11/17 08:47 Finasteride (Proscar) 5 mg DAILY ORAL 03/10/17 09:00 04/09/17 08:59 03/11/17 08:47 Fluconazole 50 ml @ 50 mls/hr Q24H IV 03/10/17 14:00 03/17/17 13:59 03/11/17 15:36 Heparin Sodium (Porcine) (Heparin 5000 units/ml) 5,000 units EVERY 12 HOURS SUBQ 03/10/17 09:00 04/09/17 08:59 03/11/17 08:48 Levofloxacin 150 ml @ 100 mls/hr Q24H IVPB 03/10/17 13:00 03/17/17 12:59 03/11/17 13:27 Nitroglycerin (Ntg) 0.4 mg Q5M PRN SL Prn Chest Pain 03/10/17 07:30 04/09/17 07:29 Ondansetron HCl (Zofran) 4 mg Q6H PRN IVP Nausea & Vomiting 03/10/17 07:30 04/09/17 07:29 Piperacillin Sod/ Tazobactam Sod 3.375 gm/Sodium Chloride 110 ml @ 27.5 mls/hr EVERY 8 HOURS IVPB 03/10/17 14:00 03/15/17 13:59 03/11/17 04:29 Polyethylene Glycol (Miralax) 17 gm DAILYPRN PRN ORAL Constipation 03/10/17 07:30 04/09/17 07:29 Promethazine HCl/ Codeine (Phenergan with Codeine) 5 ml Q4H PRN ORAL For Cough 03/10/17 07:30 04/09/17 07:29 Tamsulosin HCl (Flomax) 0.4 mg BEDTIME ORAL 03/10/17 21:00 04/09/17 20:59 03/10/17 21:16 Temazepam (Restoril) 15 mg HSPRN PRN ORAL Insomnia 03/10/17 07:30 03/17/17 07:29 03/10/17 21:16 QIAN GARCIA Mar 11, 2017 16:40
[2017-03-11] MEDS: Albuterol/Ipratropium 3ml neb HHN PRN (17:50)
[2017-03-11 20:04] VITALS: BP 116/63
[2017-03-11] MEDS: Tamsulosin 0.4mg cap ORAL SCH (20:16)
--- NOTE | 2017-03-11 20:29 | Consultation ---
History of Present Illness General Date patient seen: Mar 11, 2017 Chief Complaint: Dyspnea/Respdistress Present Illness HPI 82-year-old male with multiple medical problems who was admitted to this medical center due to shortness of breath and weakness. the pt is a poor historian however is alert and oriented. the pt is alert and oriented however get agitated and wants to come out bed sitter at bedside. the pt stated that he wants to go home. the pt has acks capacity to leave ama. he is illogical Allergies: Coded Allergies: SULFA (SULFONAMIDE ANTIBIOTICS) (Unverified Allergy, Unknown, 03/10/17) Medication History Scheduled Albuterol Sulfate (Ventolin Hfa), Unknown Dose INH EVERY 6 HOURS, (Reported) Aspirin* (Aspir 81*), 81 MG ORAL DAILY, (Reported) Cholecalciferol (Vitamin D3) (Vitamin D-400*), 400 UNITS ORAL DAILY, (Reported) Cyclosporine (Restasis), 1 DROP BOTH EYES EVERY 12 HOURS, (Reported) Escitalopram Oxalate* (Lexapro*), 10 MG ORAL DAILY, (Reported) Esomeprazole Magnesium (Nexium), 40 MG ORAL DAILY, (Reported) Finasteride* (Proscar*), 5 MG ORAL DAILY, (Reported) Lorazepam* (Lorazepam*), 0.5 MG ORAL THREE TIMES A DAY, (Reported) Lubiprostone (Amitiza*), 24 MCG ORAL EVERY 12 HOURS, (Reported) Meloxicam* (Meloxicam*), 15 MG PO DAILY, (Reported) Mometasone Furoate (Nasonex), 2 SPRAYS NASAL DAILY, (Reported) Montelukast Sodium* (Montelukast Sodium*), 10 MG ORAL DAILY, (Reported) Pantoprazole* (Pantoprazole*), 40 MG ORAL DAILY, (Reported) Simvastatin (Zocor), 20 MG ORAL BEDTIME, (Reported) Tamsulosin Hcl (Tamsulosin Hcl*), 0.4 MG ORAL BEDTIME, (Reported) Scheduled PRN Diphenhydramine Hcl* (Benadryl Allergy*), 12.5 MG ORAL Q6H PRN, (Reported) Miscellaneous Medications Budesonide/Formoterol Fumarate (Symbicort 160-4.5 Mcg Inhaler), 1 PUFF IH, ( Reported) Chlorhexidine (Chlorhexidine Flavor), 1 ML MC, (Reported) Diclofenac Sodium (Voltaren), 100 GM TP, (Reported) Gluc/MSM/C/Amery/Manganese/Katarzyna (Joint Support Complex Softgel), 1 EACH PO, ( Reported) Linaclotide (Linzess), 290 MCG PO, (Reported) Olopatadine Hcl (Pataday), 2.5 ML OP, (Reported) Rescue-3 Fatty Acids (Fish Oil), 300 MG PO, (Reported) Turmeric Root Extract (Turmeric), 500 MG PO, (Reported) Patient History Limited by: medical condition History Provided By: Patient, Medical Record, PMD Healthcare decision maker Resuscitation status Full Code Advanced Directive on File will bring the copy Past Medical/Surgical History Past Medical/Surgical History: (1) Anxiety (2) Hyperlipemia (3) GERD (gastroesophageal reflux disease) (4) BPH (benign prostatic hyperplasia) (5) Encounter for PEG (percutaneous endoscopic gastrostomy) (6) Constipation (7) Hypoxia (8) COPD (chronic obstructive pulmonary disease) (9) Laryngeal cancer (10) CAD (coronary artery disease) (11) Asthma (12) Pneumonia Review of Systems Psychiatric: Reports: prior hx, anxiety, depressed feelings Physical Exam General Appearance: no apparent distress, alert Neurologic: alert, oriented x 3, responsive, depressed affect Last 24 Hour Vital Signs Date Time Temp Pulse Resp B/P (MAP) Pulse Ox O2 Delivery O2 Flow Rate FiO2 03/11/17 20:04 97.0 61 18 116/63 95 03/11/17 17:52 61 18 99 Nasal Cannula 3.0 32 03/11/17 17:52 67 16 97 Nasal Cannula 3.0 32 03/11/17 17:52 67 16 Nasal Cannula 3.0 32 03/11/17 16:00 97.3 49 20 140/72 98 03/11/17 11:28 98.0 51 19 127/69 96 03/11/17 08:28 98.2 57 20 136/63 96 03/11/17 04:00 97.5 69 21 121/67 95 03/11/17 04:00 Room Air 03/11/17 00:00 Nasal Cannula 2.0 Intake and Output 03/10/17 03/11/17 19:00 07:00 Intake Total 310.0 ml 137.5 ml Output Total 400 ml 600 ml Balance -90.0 ml -462.5 ml IV Total 310.0 ml 137.5 ml Other 0 ml Output Urine Total 400 ml 600 ml # Voids 1 Laboratory Tests Test 03/11/17 06:54 White Blood Count 7.9 K/UL (4.8-10.8) Red Blood Count 3.87 M/UL (4.70-6.10) L Hemoglobin 12.4 G/DL (14.2-18.0) L Hematocrit 36.5 % (42.0-52.0) L Mean Corpuscular Volume 94 FL (80-99) Mean Corpuscular Hemoglobin 32.0 PG (27.0-31.0) H Mean Corpuscular Hemoglobin Concent 33.9 G/DL (32.0-36.0) Red Cell Distribution Width 12.2 % (11.6-14.8) Platelet Count 159 K/UL (150-450) Mean Platelet Volume 7.5 FL (6.5-10.1) Neutrophils (%) (Auto) 80.9 % (45.0-75.0) H Lymphocytes (%) (Auto) 8.9 % (20.0-45.0) L Monocytes (%) (Auto) 8.9 % (1.0-10.0) Eosinophils (%) (Auto) 0.8 % (0.0-3.0) Basophils (%) (Auto) 0.5 % (0.0-2.0) Miscellaneous Test Pending Sodium Level 135 MMOL/L (136-145) L Potassium Level 3.7 MMOL/L (3.5-5.1) Chloride Level 101 MMOL/L (98-107) Carbon Dioxide Level 30 MMOL/L (21-32) Anion Gap 4 mmol/L (5-15) L Blood Urea Nitrogen 15 mg/dL (7-18) Creatinine 0.7 MG/DL (0.55-1.30) Estimat Glomerular Filtration Rate mL/min (>60) Glucose Level 90 MG/DL (74-106) Calcium Level 9.2 MG/DL (8.5-10.1) Phosphorus Level 2.7 MG/DL (2.5-4.9) C-Reactive Protein, Quantitative 11.9 mg/dL (0.00-0.90) H Albumin 2.9 G/DL (3.4-5.0) L Height (Feet): 5 Height (Inches): 6.00 Weight (Pounds): 137 Medications Current Medications Medications (Trade) Dose Ordered Sig/Solis Route PRN Reason Start Time Stop Time Status Last Admin Dose Admin Acetaminophen (Tylenol) 650 mg Q4H PRN ORAL fever 03/10/17 07:30 04/09/17 07:29 Al Hydroxide/Mg Hydroxide (Mylanta II) 30 ml Q6H PRN ORAL dyspepsia 03/10/17 07:30 04/09/17 07:29 Albuterol/ Ipratropium (Albuterol/ Ipratropium) 3 ml EVERY 4 HOURS PRN HHN Shortness of Breath 03/10/17 07:30 03/15/17 07:29 03/11/17 17:50 Aspirin (Ecotrin) 81 mg DAILY ORAL 03/10/17 09:00 04/09/17 08:59 03/11/17 08:47 Escitalopram Oxalate (Lexapro) 10 mg DAILY ORAL 03/10/17 09:00 04/09/17 08:59 03/11/17 08:47 Finasteride (Proscar) 5 mg DAILY ORAL 03/10/17 09:00 04/09/17 08:59 03/11/17 08:47 Fluconazole 50 ml @ 50 mls/hr Q24H IV 03/10/17 14:00 03/17/17 13:59 03/11/17 15:36 Heparin Sodium (Porcine) (Heparin 5000 units/ml) 5,000 units EVERY 12 HOURS SUBQ 03/10/17 09:00 04/09/17 08:59 03/11/17 20:23 Levofloxacin 150 ml @ 100 mls/hr Q24H IVPB 03/10/17 13:00 03/17/17 12:59 03/11/17 13:27 Nitroglycerin (Ntg) 0.4 mg Q5M PRN SL Prn Chest Pain 03/10/17 07:30 04/09/17 07:29 Ondansetron HCl (Zofran) 4 mg Q6H PRN IVP Nausea & Vomiting 03/10/17 07:30 04/09/17 07:29 Piperacillin Sod/ Tazobactam Sod 3.375 gm/Sodium Chloride 110 ml @ 27.5 mls/hr EVERY 8 HOURS IVPB 03/10/17 14:00 03/15/17 13:59 03/11/17 17:09 Polyethylene Glycol (Miralax) 17 gm DAILYPRN PRN ORAL Constipation 03/10/17 07:30 04/09/17 07:29 Promethazine HCl/ Codeine (Phenergan with Codeine) 5 ml Q4H PRN ORAL For Cough 03/10/17 07:30 04/09/17 07:29 Tamsulosin HCl (Flomax) 0.4 mg BEDTIME ORAL 03/10/17 21:00 04/09/17 20:59 03/11/17 20:16 Temazepam (Restoril) 15 mg HSPRN PRN ORAL Insomnia 03/10/17 07:30 03/17/17 07:29 03/10/17 21:16 Assessment/Plan Status: stable, progressing Assessment/Plan anxiety d/o Lexapro 10mg Catie Ruffin M.D. Mar 11, 2017 20:29
[2017-03-11] MEDS ORDERED: Zosyn 3.375gm inj ONE (23:20)
[2017-03-12] VITALS: BP 107/54
[2017-03-12] MEDS ORDERED: Zosyn 3.375gm inj ONE (03:41)
[2017-03-12 04:00] VITALS: BP 128/66
[2017-03-12] MEDS: Zoysn 3.37gm in NS 100ML IVPB SCH ×3 (05:20→23:40)
[2017-03-12 08:00] VITALS: BP 121/66
[2017-03-12 08:07] LABS: BASOPHILS % (AUTO) 0.7 % (0.0-2.0); EOSINOPHILS % (AUTO) 3.2 % (0.0-3.0); HEMATOCRIT 34.3 % (42.0-52.0); HEMOGLOBIN 11.9 G/DL (14.2-18.0); LYMPHOCYTES % (AUTO) 7.9 % (20.0-45.0); MEAN CORPUSCULAR VOLUME 94 FL (80-99); MONOCYTES % (AUTO) 8.6 % (1.0-10.0); NEUTROPHILS % (AUTO) 79.6 % (45.0-75.0); PLATELET COUNT 150 K/UL (150-450); RED BLOOD COUNT 3.64 M/UL (4.70-6.10); RED CELL DISTRIBUTION WIDTH 12.3 % (11.6-14.8)
[2017-03-12 08:37] LABS: ALANINE AMINOTRANSFERASE 10 U/L (12-78); ALBUMIN 2.7 G/DL (3.4-5.0); ALBUMIN/GLOBULIN RATIO 0.9 (1.0-2.7); ALKALINE PHOSPHATASE 45 U/L (46-116); ANION GAP 8 mmol/L (5-15); ASPARTATE AMINO TRANSFERASE 13 U/L (15-37); BILIRUBIN,TOTAL 0.6 MG/DL (0.2-1.0); BLOOD UREA NITROGEN 10 mg/dL (7-18); CALCIUM 8.8 MG/DL (8.5-10.1); CARBON DIOXIDE 27 MMOL/L (21-32); CHLORIDE 100 MMOL/L (98-107); CREATININE 0.8 MG/DL (0.55-1.30); PHOSPHORUS 3.1 MG/DL (2.5-4.9); POTASSIUM 3.5 MMOL/L (3.5-5.1); SODIUM 135 MMOL/L (136-145)
[2017-03-12] MEDS: Heparin 5000 units/ml inj SUBQ SCH ×2 (09:00→20:20)
[2017-03-12] MEDS: Aspirin EC 81mg tab ORAL SCH (09:29)
[2017-03-12] MEDS: LORazepam 1mg tab ORAL PRN (11:02)
[2017-03-12 12:00] VITALS: BP 130/70
[2017-03-12 16:00] VITALS: BP 117/76
--- NOTE | 2017-03-12 16:23 | Pulmonology Progress Note ---
Assessment/Plan Problems: (1) Pneumonia (2) COPD (chronic obstructive pulmonary disease) (3) Laryngeal cancer (4) CAD (coronary artery disease) Assessment/Plan respiratory treatment continue abx check cultures titrate fio2 chest pt all notes and meds reviewed Subjective ROS Limited/Unobtainable: No Constitutional: Reports: no symptoms HEENT: Repors: no symptoms Allergies: Coded Allergies: SULFA (SULFONAMIDE ANTIBIOTICS) (Unverified Allergy, Unknown, 03/10/17) Objective Last 24 Hour Vital Signs Date Time Temp Pulse Resp B/P (MAP) Pulse Ox O2 Delivery O2 Flow Rate FiO2 03/12/17 16:00 97.3 68 18 117/76 95 Nasal Cannula 2.0 03/12/17 12:00 97.3 57 18 130/70 96 Nasal Cannula 2.0 03/12/17 08:00 97.5 60 17 121/66 96 Nasal Cannula 2.0 03/12/17 04:00 97.0 50 20 128/66 97 03/12/17 00:00 Nasal Cannula 2.0 03/12/17 00:00 97.0 52 20 107/54 95 03/11/17 20:04 97.0 61 18 116/63 95 03/11/17 20:00 Nasal Cannula 2.0 03/11/17 17:52 61 18 99 Nasal Cannula 3.0 32 03/11/17 17:52 67 16 97 Nasal Cannula 3.0 32 03/11/17 17:52 67 16 Nasal Cannula 3.0 32 Intake and Output 03/11/17 03/12/17 19:00 07:00 Intake Total 797.5 ml 920.0 ml Output Total 400 ml 700 ml Balance 397.5 ml 220.0 ml Intake Oral 570 ml 700 ml IV Total 227.5 ml 220.0 ml Output Urine Total 400 ml 700 ml # Voids 2 # Bowel Movements 1 1 Objective General Appearance: WD/WN HEENT: normocephalic, atraumatic Respiratory/Chest: chest wall non-tender, lungs clear Cardiovascular: normal peripheral pulses, normal rate Abdomen: normal bowel sounds, soft, non tender Genitourinary: normal external genitalia Extremities: no cyanosis 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, no motor/sensory deficits Lymphatic: no neck adenopathy Microbiology Date/Time Source Procedure Growth Status 03/10/17 01:20 Blood Blood Culture - Preliminary NO GROWTH AFTER 48 HOURS Resulted 03/10/17 01:15 Blood Blood Culture - Preliminary NO GROWTH AFTER 48 HOURS Resulted 03/10/17 18:00 Sputum Gram Stain - Final Complete 03/10/17 18:00 Sputum Culture - Final Sandra Albicans Usual Upper Respiratory Estrella Complete 03/10/17 01:18 Nasal Nares Influenza Types A,B Antigen (MARYSOL) - Final Complete 03/10/17 12:30 Urine,Clean Catch Urine Culture - Preliminary Mixed Gram Positive Organism Resulted Laboratory Tests 03/12/17 07:00: White Blood Count 7.0, Red Blood Count 3.64L, Hemoglobin 11.9L, Hematocrit 34.3L , Mean Corpuscular Volume 94, Mean Corpuscular Hemoglobin 32.6H, Mean Corpuscular Hemoglobin Concent 34.5, Red Cell Distribution Width 12.3, Platelet Count 150, Mean Platelet Volume 7.0, Neutrophils (%) (Auto) 79.6H, Lymphocytes ( %) (Auto) 7.9L, Monocytes (%) (Auto) 8.6, Eosinophils (%) (Auto) 3.2H, Basophils (%) (Auto) 0.7, Sodium Level 135L, Potassium Level 3.5, Chloride Level 100, Carbon Dioxide Level 27, Anion Gap 8, Blood Urea Nitrogen 10, Creatinine 0.8, Estimat Glomerular Filtration Rate , Glucose Level 108H, Calcium Level 8.8, Phosphorus Level 3.1, Magnesium Level 1.6L, Total Bilirubin 0.6, Aspartate Amino Transf (AST/SGOT) 13L, Alanine Aminotransferase (ALT/SGPT) 10L, Alkaline Phosphatase 45L, Total Protein 5.8L, Albumin 2.7L, Globulin 3.1, Albumin/Globulin Ratio 0.9L Current Medications Medications (Trade) Dose Ordered Sig/Solis Route PRN Reason Start Time Stop Time Status Last Admin Dose Admin Acetaminophen (Tylenol) 650 mg Q4H PRN ORAL fever 03/10/17 07:30 04/09/17 07:29 Al Hydroxide/Mg Hydroxide (Mylanta II) 30 ml Q6H PRN ORAL dyspepsia 03/10/17 07:30 04/09/17 07:29 Albuterol/ Ipratropium (Albuterol/ Ipratropium) 3 ml EVERY 4 HOURS PRN HHN Shortness of Breath 03/10/17 07:30 03/15/17 07:29 03/11/17 17:50 Aspirin (Ecotrin) 81 mg DAILY ORAL 03/10/17 09:00 04/09/17 08:59 03/12/17 09:29 Escitalopram Oxalate (Lexapro) 20 mg DAILY ORAL 03/12/17 09:00 04/11/17 08:59 03/12/17 09:30 Finasteride (Proscar) 5 mg DAILY ORAL 03/10/17 09:00 04/09/17 08:59 03/12/17 09:00 Fluconazole 50 ml @ 50 mls/hr Q24H IV 03/10/17 14:00 03/17/17 13:59 03/12/17 14:44 Heparin Sodium (Porcine) (Heparin 5000 units/ml) 5,000 units EVERY 12 HOURS SUBQ 03/10/17 09:00 04/09/17 08:59 03/11/17 20:23 Levofloxacin 150 ml @ 100 mls/hr Q24H IVPB 03/10/17 13:00 03/17/17 12:59 03/12/17 13:23 Lorazepam (Ativan) 1 mg Q6H PRN ORAL For Anxiety 03/11/17 21:30 03/18/17 21:29 03/12/17 11:02 Nitroglycerin (Ntg) 0.4 mg Q5M PRN SL Prn Chest Pain 03/10/17 07:30 04/09/17 07:29 Ondansetron HCl (Zofran) 4 mg Q6H PRN IVP Nausea & Vomiting 03/10/17 07:30 04/09/17 07:29 Piperacillin Sod/ Tazobactam Sod 3.375 gm/Sodium Chloride 110 ml @ 27.5 mls/hr EVERY 8 HOURS IVPB 03/10/17 14:00 03/15/17 13:59 03/12/17 16:05 Polyethylene Glycol (Miralax) 17 gm DAILYPRN PRN ORAL Constipation 03/10/17 07:30 04/09/17 07:29 Promethazine HCl/ Codeine (Phenergan with Codeine) 5 ml Q4H PRN ORAL For Cough 03/10/17 07:30 04/09/17 07:29 03/12/17 09:30 Tamsulosin HCl (Flomax) 0.4 mg BEDTIME ORAL 03/10/17 21:00 04/09/17 20:59 03/11/17 20:16 Temazepam (Restoril) 15 mg HSPRN PRN ORAL Insomnia 03/10/17 07:30 03/17/17 07:29 03/11/17 21:52 QIAN GARCIA Mar 12, 2017 16:23
[2017-03-12 20:00] VITALS: BP 119/81
[2017-03-12] MEDS: Tamsulosin 0.4mg cap ORAL SCH (20:19)
--- NOTE | 2017-03-12 20:39 | Infectious Diseases Prog Note ---
Assessment/Plan Assessment/Plan ASSESSMENT: The patient is a 82-year-old male with Fever, SP Leukocytosis , SP Possible underlying community-acquired pneumonia vs Asp Pneum Scx: NL Fl; Sandra: colonizer Oral thrush improving doubt urinary tract infection. Ucx mixed growth CRP 11.9 Throat and ? lung cancer Chronic knee pain depression. PLAN: We will continue Zosyn and Levaquin d# 3 / 7 , Cont Diflucan d# 3 / 10 ok to DC on Flagyl and Levaquin x 5 d and cont Diflucan ( Rx in chart ) Monitor CBC. Monitor BMP. Monitor cultures (blood ) Monitor chest x-ray. Subjective Constitutional: Denies: no symptoms, fever, chills, fatigue, anorexia, drenching sweats, other Allergies: Coded Allergies: SULFA (SULFONAMIDE ANTIBIOTICS) (Unverified Allergy, Unknown, 03/10/17) Subjective confused Objective Vital Signs Last 24 Hour Vital Signs Date Time Temp Pulse Resp B/P (MAP) Pulse Ox O2 Delivery O2 Flow Rate FiO2 03/12/17 16:00 97.3 68 18 117/76 95 Nasal Cannula 2.0 03/12/17 12:00 97.3 57 18 130/70 96 Nasal Cannula 2.0 03/12/17 08:00 97.5 60 17 121/66 96 Nasal Cannula 2.0 03/12/17 04:00 97.0 50 20 128/66 97 03/12/17 00:00 Nasal Cannula 2.0 03/12/17 00:00 97.0 52 20 107/54 95 Height (Feet): 5 Height (Inches): 6.00 Weight (Pounds): 137 HEENT: atraumatic Respiratory/Chest: no respiratory distress Cardiovascular: normal rate Abdomen: non distended Microbiology Date/Time Source Procedure Growth Status 03/10/17 01:20 Blood Blood Culture - Preliminary NO GROWTH AFTER 48 HOURS Resulted 03/10/17 01:15 Blood Blood Culture - Preliminary NO GROWTH AFTER 48 HOURS Resulted 03/10/17 18:00 Sputum Gram Stain - Final Complete 03/10/17 18:00 Sputum Culture - Final Sandra Albicans Usual Upper Respiratory Estrella Complete 03/10/17 01:18 Nasal Nares Influenza Types A,B Antigen (MARYSOL) - Final Complete 03/10/17 12:30 Urine,Clean Catch Urine Culture - Preliminary Mixed Gram Positive Organism Resulted Laboratory Tests Test 03/12/17 07:00 White Blood Count 7.0 K/UL (4.8-10.8) Red Blood Count 3.64 M/UL (4.70-6.10) L Hemoglobin 11.9 G/DL (14.2-18.0) L Hematocrit 34.3 % (42.0-52.0) L Mean Corpuscular Volume 94 FL (80-99) Mean Corpuscular Hemoglobin 32.6 PG (27.0-31.0) H Mean Corpuscular Hemoglobin Concent 34.5 G/DL (32.0-36.0) Red Cell Distribution Width 12.3 % (11.6-14.8) Platelet Count 150 K/UL (150-450) Mean Platelet Volume 7.0 FL (6.5-10.1) Neutrophils (%) (Auto) 79.6 % (45.0-75.0) H Lymphocytes (%) (Auto) 7.9 % (20.0-45.0) L Monocytes (%) (Auto) 8.6 % (1.0-10.0) Eosinophils (%) (Auto) 3.2 % (0.0-3.0) H Basophils (%) (Auto) 0.7 % (0.0-2.0) Sodium Level 135 MMOL/L (136-145) L Potassium Level 3.5 MMOL/L (3.5-5.1) Chloride Level 100 MMOL/L (98-107) Carbon Dioxide Level 27 MMOL/L (21-32) Anion Gap 8 mmol/L (5-15) Blood Urea Nitrogen 10 mg/dL (7-18) Creatinine 0.8 MG/DL (0.55-1.30) Estimat Glomerular Filtration Rate mL/min (>60) Glucose Level 108 MG/DL (74-106) H Calcium Level 8.8 MG/DL (8.5-10.1) Phosphorus Level 3.1 MG/DL (2.5-4.9) Magnesium Level 1.6 MG/DL (1.8-2.4) L Total Bilirubin 0.6 MG/DL (0.2-1.0) Aspartate Amino Transf (AST/SGOT) 13 U/L (15-37) L Alanine Aminotransferase (ALT/SGPT) 10 U/L (12-78) L Alkaline Phosphatase 45 U/L (46-116) L Total Protein 5.8 G/DL (6.4-8.2) L Albumin 2.7 G/DL (3.4-5.0) L Globulin 3.1 g/dL Albumin/Globulin Ratio 0.9 (1.0-2.7) L Current Medications Medications (Trade) Dose Ordered Sig/Solis Route PRN Reason Start Time Stop Time Status Last Admin Dose Admin Acetaminophen (Tylenol) 650 mg Q4H PRN ORAL fever 03/10/17 07:30 04/09/17 07:29 Al Hydroxide/Mg Hydroxide (Mylanta II) 30 ml Q6H PRN ORAL dyspepsia 03/10/17 07:30 04/09/17 07:29 Albuterol/ Ipratropium (Albuterol/ Ipratropium) 3 ml EVERY 4 HOURS PRN HHN Shortness of Breath 03/10/17 07:30 03/15/17 07:29 03/11/17 17:50 Aspirin (Ecotrin) 81 mg DAILY ORAL 03/10/17 09:00 04/09/17 08:59 03/12/17 09:29 Escitalopram Oxalate (Lexapro) 20 mg DAILY ORAL 03/12/17 09:00 04/11/17 08:59 03/12/17 09:30 Finasteride (Proscar) 5 mg DAILY ORAL 03/10/17 09:00 04/09/17 08:59 03/12/17 09:00 Fluconazole 50 ml @ 50 mls/hr Q24H IV 03/10/17 14:00 03/17/17 13:59 03/12/17 14:44 Heparin Sodium (Porcine) (Heparin 5000 units/ml) 5,000 units EVERY 12 HOURS SUBQ 03/10/17 09:00 04/09/17 08:59 03/12/17 20:20 Levofloxacin 150 ml @ 100 mls/hr Q24H IVPB 03/10/17 13:00 03/17/17 12:59 03/12/17 13:23 Lorazepam (Ativan) 1 mg Q6H PRN ORAL For Anxiety 03/11/17 21:30 03/18/17 21:29 03/12/17 11:02 Nitroglycerin (Ntg) 0.4 mg Q5M PRN SL Prn Chest Pain 03/10/17 07:30 04/09/17 07:29 Ondansetron HCl (Zofran) 4 mg Q6H PRN IVP Nausea & Vomiting 03/10/17 07:30 04/09/17 07:29 Piperacillin Sod/ Tazobactam Sod 3.375 gm/Sodium Chloride 110 ml @ 27.5 mls/hr EVERY 8 HOURS IVPB 03/10/17 14:00 03/15/17 13:59 03/12/17 16:05 Polyethylene Glycol (Miralax) 17 gm DAILYPRN PRN ORAL Constipation 03/10/17 07:30 04/09/17 07:29 Promethazine HCl/ Codeine (Phenergan with Codeine) 5 ml Q4H PRN ORAL For Cough 03/10/17 07:30 04/09/17 07:29 03/12/17 09:30 Tamsulosin HCl (Flomax) 0.4 mg BEDTIME ORAL 03/10/17 21:00 04/09/17 20:59 03/12/17 20:19 Temazepam (Restoril) 15 mg HSPRN PRN ORAL Insomnia 03/10/17 07:30 03/17/17 07:29 03/11/17 21:52 YANDY PASTOR M.D. Mar 12, 2017 20:39
[2017-03-13] VITALS: BP 121/73
[2017-03-13 04:00] VITALS: BP 140/73
[2017-03-13] MEDS: Zoysn 3.37gm in NS 100ML IVPB SCH ×3 (05:38→23:01)
--- NOTE | 2017-03-13 07:43 | Pulmonology Progress Note ---
Assessment/Plan Assessment/Plan ASSESSMENT possible sepsis( initial fever, leukocytosis, now leukopenia) PNA COPD Oral thrush Laryngeal cancer CAD anxiety disorder BPH chronic knee pain PLAN OF CARE MS floor O2, titrate HHN and CPT Fluconazole and empiric abx ID follows Sputum cx + Sandra,-colonizer as per ID urine cx +mixed GPO, blood cx prel negative Fup with CXR in am low dose steroids a/tussive prn DVT prophylaxis Pain management Bowel regimen Continue Flomax continue ASA psych follows started on Lexapro case discussed and evaluated by supervising physician Subjective Allergies: Coded Allergies: SULFA (SULFONAMIDE ANTIBIOTICS) (Unverified Allergy, Unknown, 03/10/17) Subjective afebrilem no leukoctytosis + coughinh, no hemooptysis, +whezing Objective Last 24 Hour Vital Signs Date Time Temp Pulse Resp B/P (MAP) Pulse Ox O2 Delivery O2 Flow Rate FiO2 03/13/17 04:00 97.4 53 20 140/73 97 Nasal Cannula 2.0 03/13/17 00:00 97.5 57 20 121/73 98 Nasal Cannula 2.0 03/12/17 23:19 Nasal Cannula 2.0 28 03/12/17 20:00 97.2 62 20 119/81 95 Nasal Cannula 2.0 03/12/17 16:00 97.3 68 18 117/76 95 Nasal Cannula 2.0 03/12/17 12:00 97.3 57 18 130/70 96 Nasal Cannula 2.0 03/12/17 08:00 97.5 60 17 121/66 96 Nasal Cannula 2.0 Intake and Output 03/12/17 03/13/17 19:00 07:00 Intake Total 1520 ml 617.5 ml Output Total 1375 ml Balance 145 ml 617.5 ml Intake Oral 1520 ml 480 ml IV Total 137.5 ml Output Urine Total 1375 ml # Voids 2 1 # Bowel Movements 1 General Appearance: no acute distress HEENT: normocephalic, atraumatic, anicteric, mucous membranes moist Respiratory/Chest: rhonchi - few scattered rhonchi, expiratory wheezing - in anterior and posterior jama, Cardiovascular: no JVD Abdomen: soft, non tender, non distended Extremities: no edema, pedal pulses normal Neurologic/Psychiatric: alert, responsive Musculoskeletal: atrophy - BLE Microbiology Date/Time Source Procedure Growth Status 03/10/17 18:00 Sputum Gram Stain - Final Complete 03/10/17 18:00 Sputum Culture - Final Sandra Albicans Usual Upper Respiratory Estrella Complete 03/10/17 12:30 Urine,Clean Catch Urine Culture - Final Mixed Gram Positive Organism Complete Current Medications Medications (Trade) Dose Ordered Sig/Solis Route PRN Reason Start Time Stop Time Status Last Admin Dose Admin Acetaminophen (Tylenol) 650 mg Q4H PRN ORAL fever 03/10/17 07:30 04/09/17 07:29 Al Hydroxide/Mg Hydroxide (Mylanta II) 30 ml Q6H PRN ORAL dyspepsia 03/10/17 07:30 04/09/17 07:29 Albuterol/ Ipratropium (Albuterol/ Ipratropium) 3 ml EVERY 4 HOURS PRN HHN Shortness of Breath 03/10/17 07:30 03/15/17 07:29 03/11/17 17:50 Aspirin (Ecotrin) 81 mg DAILY ORAL 03/10/17 09:00 04/09/17 08:59 03/12/17 09:29 Escitalopram Oxalate (Lexapro) 20 mg DAILY ORAL 03/12/17 09:00 04/11/17 08:59 03/12/17 09:30 Finasteride (Proscar) 5 mg DAILY ORAL 03/10/17 09:00 04/09/17 08:59 03/12/17 09:00 Fluconazole 50 ml @ 50 mls/hr Q24H IV 03/10/17 14:00 03/17/17 13:59 03/12/17 14:44 Heparin Sodium (Porcine) (Heparin 5000 units/ml) 5,000 units EVERY 12 HOURS SUBQ 03/10/17 09:00 04/09/17 08:59 03/12/17 20:20 Levofloxacin 150 ml @ 100 mls/hr Q24H IVPB 03/10/17 13:00 03/17/17 12:59 03/12/17 13:23 Lorazepam (Ativan) 1 mg Q6H PRN ORAL For Anxiety 03/11/17 21:30 03/18/17 21:29 03/12/17 11:02 Nitroglycerin (Ntg) 0.4 mg Q5M PRN SL Prn Chest Pain 03/10/17 07:30 04/09/17 07:29 Ondansetron HCl (Zofran) 4 mg Q6H PRN IVP Nausea & Vomiting 03/10/17 07:30 04/09/17 07:29 Piperacillin Sod/ Tazobactam Sod 3.375 gm/Sodium Chloride 110 ml @ 27.5 mls/hr EVERY 8 HOURS IVPB 03/10/17 14:00 03/15/17 13:59 03/13/17 05:38 Polyethylene Glycol (Miralax) 17 gm DAILYPRN PRN ORAL Constipation 03/10/17 07:30 04/09/17 07:29 Promethazine HCl/ Codeine (Phenergan with Codeine) 5 ml Q4H PRN ORAL For Cough 03/10/17 07:30 04/09/17 07:29 03/12/17 09:30 Tamsulosin HCl (Flomax) 0.4 mg BEDTIME ORAL 03/10/17 21:00 04/09/17 20:59 03/12/17 20:19 Temazepam (Restoril) 15 mg HSPRN PRN ORAL Insomnia 03/10/17 07:30 03/17/17 07:29 03/11/17 21:52 Rubén ([facility])Kathi NP Mar 13, 2017 07:43
[2017-03-13 08:00] VITALS: BP 124/62
[2017-03-13] MEDS: Heparin 5000 units/ml inj SUBQ SCH ×2 (09:00→20:31)
[2017-03-13] MEDS: Aspirin EC 81mg tab ORAL SCH (09:16)
--- NOTE | 2017-03-13 10:49 | Infectious Diseases Prog Note ---
Assessment/Plan Assessment/Plan ASSESSMENT: The patient is a 82-year-old male with Fever, SP Leukocytosis , SP Possible underlying community-acquired pneumonia vs Asp Pneum Scx: NL Fl; Sandra: colonizer Oral thrush improving doubt urinary tract infection. Ucx mixed growth CRP 11.9 Throat and ? lung cancer Chronic knee pain depression. PLAN: We will continue Zosyn and Levaquin d# 4 / 7 , Cont Diflucan d# 4 / 10 ok to DC on Flagyl and Levaquin x 5 d and cont Diflucan ( Rx in chart ) Monitor CBC. Monitor BMP. Monitor cultures (blood) Monitor chest x-ray. Subjective Constitutional: Denies: no symptoms, fever, chills, fatigue, anorexia, drenching sweats, other Allergies: Coded Allergies: SULFA (SULFONAMIDE ANTIBIOTICS) (Unverified Allergy, Unknown, 03/10/17) Subjective confused Objective Vital Signs Last 24 Hour Vital Signs Date Time Temp Pulse Resp B/P (MAP) Pulse Ox O2 Delivery O2 Flow Rate FiO2 03/13/17 08:00 97.1 67 18 124/62 94 03/13/17 07:40 Nasal Cannula 2.0 28 03/13/17 04:00 97.4 53 20 140/73 97 Nasal Cannula 2.0 03/13/17 00:00 97.5 57 20 121/73 98 Nasal Cannula 2.0 03/12/17 23:19 Nasal Cannula 2.0 28 03/12/17 20:00 97.2 62 20 119/81 95 Nasal Cannula 2.0 03/12/17 16:00 97.3 68 18 117/76 95 Nasal Cannula 2.0 03/12/17 12:00 97.3 57 18 130/70 96 Nasal Cannula 2.0 Height (Feet): 5 Height (Inches): 6.00 Weight (Pounds): 137 HEENT: atraumatic Respiratory/Chest: no respiratory distress Cardiovascular: regular rhythm Abdomen: soft, non tender Microbiology Date/Time Source Procedure Growth Status 03/10/17 18:00 Sputum Gram Stain - Final Complete 03/10/17 18:00 Sputum Culture - Final Sandra Albicans Usual Upper Respiratory Estrella Complete 03/10/17 12:30 Urine,Clean Catch Urine Culture - Final Mixed Gram Positive Organism Complete Current Medications Medications (Trade) Dose Ordered Sig/Solis Route PRN Reason Start Time Stop Time Status Last Admin Dose Admin Acetaminophen (Tylenol) 650 mg Q4H PRN ORAL fever 03/10/17 07:30 04/09/17 07:29 Al Hydroxide/Mg Hydroxide (Mylanta II) 30 ml Q6H PRN ORAL dyspepsia 03/10/17 07:30 04/09/17 07:29 Albuterol/ Ipratropium (Albuterol/ Ipratropium) 3 ml EVERY 4 HOURS PRN HHN Shortness of Breath 03/10/17 07:30 03/15/17 07:29 03/11/17 17:50 Aspirin (Ecotrin) 81 mg DAILY ORAL 03/10/17 09:00 04/09/17 08:59 03/13/17 09:16 Escitalopram Oxalate (Lexapro) 20 mg DAILY ORAL 03/12/17 09:00 04/11/17 08:59 03/13/17 09:16 Finasteride (Proscar) 5 mg DAILY ORAL 03/10/17 09:00 04/09/17 08:59 03/13/17 09:16 Fluconazole 50 ml @ 50 mls/hr Q24H IV 03/10/17 14:00 03/17/17 13:59 03/12/17 14:44 Heparin Sodium (Porcine) (Heparin 5000 units/ml) 5,000 units EVERY 12 HOURS SUBQ 03/10/17 09:00 04/09/17 08:59 03/12/17 20:20 Levofloxacin 150 ml @ 100 mls/hr Q24H IVPB 03/10/17 13:00 03/17/17 12:59 03/12/17 13:23 Lorazepam (Ativan) 1 mg Q6H PRN ORAL For Anxiety 03/11/17 21:30 03/18/17 21:29 03/12/17 11:02 Nitroglycerin (Ntg) 0.4 mg Q5M PRN SL Prn Chest Pain 03/10/17 07:30 04/09/17 07:29 Ondansetron HCl (Zofran) 4 mg Q6H PRN IVP Nausea & Vomiting 03/10/17 07:30 04/09/17 07:29 Piperacillin Sod/ Tazobactam Sod 3.375 gm/Sodium Chloride 110 ml @ 27.5 mls/hr EVERY 8 HOURS IVPB 03/10/17 14:00 03/15/17 13:59 03/13/17 05:38 Polyethylene Glycol (Miralax) 17 gm DAILYPRN PRN ORAL Constipation 03/10/17 07:30 04/09/17 07:29 Promethazine HCl/ Codeine (Phenergan with Codeine) 5 ml Q4H PRN ORAL For Cough 03/10/17 07:30 04/09/17 07:29 03/12/17 09:30 Tamsulosin HCl (Flomax) 0.4 mg BEDTIME ORAL 03/10/17 21:00 04/09/17 20:59 03/12/17 20:19 Temazepam (Restoril) 15 mg HSPRN PRN ORAL Insomnia 03/10/17 07:30 03/17/17 07:29 03/11/17 21:52 YANDY PASTOR M.D. Mar 13, 2017 10:49
--- NOTE | 2017-03-13 10:57 | General Progress Note ---
Assessment/Plan Status: stable, progressing Assessment/Plan mdd anxiety -cont current meds Subjective Date patient seen: Mar 12, 2017 Neurologic/Psychiatric: Reports: anxiety, depressed, emotional problems Allergies: Coded Allergies: SULFA (SULFONAMIDE ANTIBIOTICS) (Unverified Allergy, Unknown, 03/10/17) Objective Last 24 Hour Vital Signs Date Time Temp Pulse Resp B/P (MAP) Pulse Ox O2 Delivery O2 Flow Rate FiO2 03/13/17 08:00 97.1 67 18 124/62 94 03/13/17 07:40 Nasal Cannula 2.0 28 03/13/17 04:00 97.4 53 20 140/73 97 Nasal Cannula 2.0 03/13/17 00:00 97.5 57 20 121/73 98 Nasal Cannula 2.0 03/12/17 23:19 Nasal Cannula 2.0 28 03/12/17 20:00 97.2 62 20 119/81 95 Nasal Cannula 2.0 03/12/17 16:00 97.3 68 18 117/76 95 Nasal Cannula 2.0 03/12/17 12:00 97.3 57 18 130/70 96 Nasal Cannula 2.0 Intake and Output 03/12/17 03/13/17 19:00 07:00 Intake Total 1520 ml 617.5 ml Output Total 1375 ml Balance 145 ml 617.5 ml Intake Oral 1520 ml 480 ml IV Total 137.5 ml Output Urine Total 1375 ml # Voids 2 1 # Bowel Movements 1 Height (Feet): 5 Height (Inches): 6.00 Weight (Pounds): 137 General Appearance: no apparent distress, alert Neurologic: alert, oriented x 3, responsive, depressed affect Catie Killian M.D. Mar 13, 2017 10:57
[2017-03-13 12:00] VITALS: BP 122/65
[2017-03-13 16:15] VITALS: BP 135/70
--- NOTE | 2017-03-13 16:48 | Progress Note ---
DATE: 03/13/2017 SUBJECTIVE: The patient continues to be anxious, depressed, and has poor cognition. Apparently, he has lost his lower denture last night. The patient is frustrated. Sleep appetite is adequate, less agitated, and anxious. MENTAL STATUS EXAMINATION: The patient is alert and oriented x3. Mood is irritable. Affect is constricted. Congruent with mood. Thought process is linear. Thought content, no suicidal or homicidal ideation. Cognition is impaired. ASSESSMENT: Anxiety and depression. PLAN: We will continue current medication. Catie Killian M.D. DR: KALI JOB#: [id number] CC:
[2017-03-13 20:00] VITALS: BP 137/76
[2017-03-13] MEDS: Tamsulosin 0.4mg cap ORAL SCH (20:30)
[2017-03-13] MEDS: Solu-MEDROL 40mg Inj IVP SCH (20:30)
[2017-03-13] MEDS ORDERED: Tubing IV Secondary IV ONE ×3 (20:35)
[2017-03-14] VITALS: BP 131/70
[2017-03-14 04:00] VITALS: BP 138/74
[2017-03-14] MEDS: Zoysn 3.37gm in NS 100ML IVPB SCH (05:33)
[2017-03-14 08:00] LABS: HEMATOCRIT 37.9 % (42.0-52.0); MEAN CORPUSCULAR VOLUME 94 FL (80-99); PLATELET COUNT 196 K/UL (150-450); RED BLOOD COUNT 4.04 M/UL (4.70-6.10); RED CELL DISTRIBUTION WIDTH 11.9 % (11.6-14.8); WHITE BLOOD COUNT 2.8 K/UL (4.8-10.8)
[2017-03-14 08:15] VITALS: BP 123/45
[2017-03-14 08:29] LABS: ANION GAP 9 mmol/L (5-15); BLOOD UREA NITROGEN 8 mg/dL (7-18); CALCIUM 9.2 MG/DL (8.5-10.1); CARBON DIOXIDE 27 MMOL/L (21-32); CHLORIDE 99 MMOL/L (98-107); CREATININE 0.6 MG/DL (0.55-1.30); POTASSIUM 3.9 MMOL/L (3.5-5.1); SODIUM 135 MMOL/L (136-145)
[2017-03-14] MEDS: Solu-MEDROL 40mg Inj IVP SCH (08:30)
[2017-03-14] MEDS: Aspirin EC 81mg tab ORAL SCH (08:30)
[2017-03-14] MEDS: Heparin 5000 units/ml inj SUBQ SCH ×2 (08:33→21:47)
--- NOTE | 2017-03-14 09:34 | Diagnostic Imaging Report ---
Indication: Reason For Exam: SOB Technique: XRAY Chest 1v Comparison:03/10/2017 Findings: The heart is normal in size. Interstitial disease has markedly decreased. No alveolar infiltrate. No pleural fluid. Impression: Marked decrease in interstitial disease bilaterally.
--- NOTE | 2017-03-14 11:00 | Infectious Diseases Prog Note ---
Assessment/Plan Assessment/Plan The patient is a 82-year-old male with Fever, SP Leukocytosis , SP - now leukocpenia Possible underlying community-acquired pneumonia vs Asp Pneum Scx: NL Fl; Sandra: colonizer -CXR 03/14; Marked decrease in interstitial disease bilaterally. Oral thrush improving doubt urinary tract infection. Ucx mixed growth CRP 11.9 Throat and ? lung cancer Chronic knee pain depression. PLAN: We will d/c Zosyn #5 (given leukopenia) and start PO flagyl -Continue Levaquin d# 5 / 7 , Cont Diflucan d# 5 / 10 ok to DC on Flagyl and Levaquin x 5 d and cont Diflucan ( Rx in chart ) Monitor CBC. Monitor BMP. Monitor cultures (blood) Monitor chest x-ray. Subjective Allergies: Coded Allergies: SULFA (SULFONAMIDE ANTIBIOTICS) (Unverified Allergy, Unknown, 03/10/17) Subjective afebrile leukopenia Objective Vital Signs Last 24 Hour Vital Signs Date Time Temp Pulse Resp B/P (MAP) Pulse Ox O2 Delivery O2 Flow Rate FiO2 03/14/17 08:15 97.6 85 19 123/45 97 Nasal Cannula 2.0 03/14/17 07:40 80 16 Nasal Cannula 3.0 32 03/14/17 07:40 Nasal Cannula 2.0 28 03/14/17 04:00 97.9 62 20 138/74 95 Nasal Cannula 2.0 03/14/17 00:00 97.2 59 20 131/70 96 Nasal Cannula 2.0 03/13/17 20:00 97.3 58 20 137/76 99 Nasal Cannula 2.0 03/13/17 19:24 Nasal Cannula 2.0 28 03/13/17 16:15 97.5 51 21 135/70 99 Room Air 03/13/17 12:00 97.8 70 18 122/65 96 Height (Feet): 5 Height (Inches): 6.00 Weight (Pounds): 137 Objective HEENT: atraumatic Respiratory/Chest: no respiratory distress Cardiovascular: regular rhythm Abdomen: soft, non tender Laboratory Tests Test 03/14/17 06:13 White Blood Count 2.8 K/UL (4.8-10.8) L Red Blood Count 4.04 M/UL (4.70-6.10) L Hemoglobin 13.0 G/DL (14.2-18.0) L Hematocrit 37.9 % (42.0-52.0) L Mean Corpuscular Volume 94 FL (80-99) Mean Corpuscular Hemoglobin 32.3 PG (27.0-31.0) H Mean Corpuscular Hemoglobin Concent 34.4 G/DL (32.0-36.0) Red Cell Distribution Width 11.9 % (11.6-14.8) Platelet Count 196 K/UL (150-450) Mean Platelet Volume 7.0 FL (6.5-10.1) Neutrophils (%) (Auto) % (45.0-75.0) Lymphocytes (%) (Auto) % (20.0-45.0) Monocytes (%) (Auto) % (1.0-10.0) Eosinophils (%) (Auto) % (0.0-3.0) Basophils (%) (Auto) % (0.0-2.0) Neutrophils % (Manual) 86 % (45-75) H Lymphocytes % (Manual) 12 % (20-45) L Monocytes % (Manual) 2 % (1-10) Eosinophils % (Manual) 0 % (0-3) Basophils % (Manual) 0 % (0-2) Band Neutrophils 0 % (0-8) Platelet Estimate Adequate Platelet Morphology Normal Anisocytosis 1+ Sodium Level 135 MMOL/L (136-145) L Potassium Level 3.9 MMOL/L (3.5-5.1) Chloride Level 99 MMOL/L (98-107) Carbon Dioxide Level 27 MMOL/L (21-32) Anion Gap 9 mmol/L (5-15) Blood Urea Nitrogen 8 mg/dL (7-18) Creatinine 0.6 MG/DL (0.55-1.30) Estimat Glomerular Filtration Rate mL/min (>60) Glucose Level 137 MG/DL (74-106) H Calcium Level 9.2 MG/DL (8.5-10.1) Current Medications Medications (Trade) Dose Ordered Sig/Solis Route PRN Reason Start Time Stop Time Status Last Admin Dose Admin Acetaminophen (Tylenol) 650 mg Q4H PRN ORAL fever 03/10/17 07:30 04/09/17 07:29 Al Hydroxide/Mg Hydroxide (Mylanta II) 30 ml Q6H PRN ORAL dyspepsia 03/10/17 07:30 04/09/17 07:29 Albuterol/ Ipratropium (Albuterol/ Ipratropium) 3 ml EVERY 4 HOURS PRN HHN Shortness of Breath 03/10/17 07:30 03/15/17 07:29 03/11/17 17:50 Aspirin (Ecotrin) 81 mg DAILY ORAL 03/10/17 09:00 04/09/17 08:59 03/14/17 08:30 Escitalopram Oxalate (Lexapro) 20 mg DAILY ORAL 03/12/17 09:00 04/11/17 08:59 03/14/17 08:30 Finasteride (Proscar) 5 mg DAILY ORAL 03/10/17 09:00 04/09/17 08:59 03/14/17 08:30 Fluconazole 50 ml @ 50 mls/hr Q24H IV 03/10/17 14:00 03/17/17 13:59 03/13/17 15:52 Heparin Sodium (Porcine) (Heparin 5000 units/ml) 5,000 units EVERY 12 HOURS SUBQ 03/10/17 09:00 04/09/17 08:59 03/14/17 08:33 Levofloxacin 150 ml @ 100 mls/hr Q24H IVPB 03/10/17 13:00 03/17/17 12:59 03/13/17 13:54 Lorazepam (Ativan) 1 mg Q6H PRN ORAL For Anxiety 03/11/17 21:30 03/18/17 21:29 03/12/17 11:02 Methylprednisolone Sodium Succinate (Solu-MEDROL) 40 mg Q12HR IVP 03/13/17 21:00 04/12/17 20:59 03/14/17 08:30 Nitroglycerin (Ntg) 0.4 mg Q5M PRN SL Prn Chest Pain 03/10/17 07:30 04/09/17 07:29 Ondansetron HCl (Zofran) 4 mg Q6H PRN IVP Nausea & Vomiting 03/10/17 07:30 04/09/17 07:29 Piperacillin Sod/ Tazobactam Sod 3.375 gm/Sodium Chloride 110 ml @ 27.5 mls/hr EVERY 8 HOURS IVPB 03/10/17 14:00 03/15/17 13:59 03/14/17 05:33 Polyethylene Glycol (Miralax) 17 gm DAILYPRN PRN ORAL Constipation 03/10/17 07:30 04/09/17 07:29 Promethazine HCl/ Codeine (Phenergan with Codeine) 5 ml Q4H PRN ORAL For Cough 03/10/17 07:30 04/09/17 07:29 03/12/17 09:30 Tamsulosin HCl (Flomax) 0.4 mg BEDTIME ORAL 03/10/17 21:00 04/09/17 20:59 03/13/17 20:30 Temazepam (Restoril) 15 mg HSPRN PRN ORAL Insomnia 03/10/17 07:30 03/17/17 07:29 03/13/17 20:30 Carolann Bob M.D. Mar 14, 2017 10:59
[2017-03-14 12:00] VITALS: BP 126/56
[2017-03-14] MEDS: metroNIDAZOLE 500mg tab ORAL SCH ×2 (14:26→21:40)
--- NOTE | 2017-03-14 14:49 | Pulmonology Progress Note ---
Assessment/Plan Assessment/Plan ASSESSMENT possible sepsis( initial fever, leukocytosis, now leukopenia) PNA COPD Oral thrush Laryngeal cancer CAD anxiety disorder BPH chronic knee pain PLAN OF CARE MS floor O2, titrate HHN and CPT Fluconazole and empiric abx ID follows Sputum cx + Sandra,-colonizer as per ID; urine cx +mixed GPO, blood cx prel negative Fup with CXR low dose steroids and taper pulse ox on RA while ambulating to determine need for home O2 CXR today 03/14 with marked improvement a/tussive prn DVT prophylaxis Pain management Bowel regimen Continue Flomax continue ASA psych follows on Lexapro dc plan case discussed and evaluated by supervising physician Subjective Allergies: Coded Allergies: SULFA (SULFONAMIDE ANTIBIOTICS) (Unverified Allergy, Unknown, 03/10/17) Subjective afebrile , no leukocytosis + coughing, no hemoptysis, clinically with some improvement SOB with ambulation Objective Last 24 Hour Vital Signs Date Time Temp Pulse Resp B/P (MAP) Pulse Ox O2 Delivery O2 Flow Rate FiO2 03/14/17 08:15 97.6 85 19 123/45 97 Nasal Cannula 2.0 03/14/17 07:40 80 16 Nasal Cannula 3.0 32 03/14/17 07:40 Nasal Cannula 2.0 28 03/14/17 04:00 97.9 62 20 138/74 95 Nasal Cannula 2.0 03/14/17 00:00 97.2 59 20 131/70 96 Nasal Cannula 2.0 03/13/17 20:00 97.3 58 20 137/76 99 Nasal Cannula 2.0 03/13/17 19:24 Nasal Cannula 2.0 28 03/13/17 16:15 97.5 51 21 135/70 99 Room Air Intake and Output 03/13/17 03/14/17 19:00 07:00 Intake Total 1410 ml 937.5 ml Output Total 400 ml 1600 ml Balance 1010 ml -662.5 ml Intake Oral 1100 ml 800 ml IV Total 310 ml 137.5 ml Output Urine Total 400 ml 1600 ml # Voids 5 5 Objective General Appearance: no acute distress HEENT: normocephalic, atraumatic, anicteric, mucous membranes moist Respiratory/Chest: few scattered rhonchi, Cardiovascular: no JVD Abdomen: soft, non tender, non distended Extremities: no edema, pedal pulses normal Neurologic/Psychiatric: alert, responsive Musculoskeletal: atrophy - BLE Laboratory Tests 03/14/17 06:13: White Blood Count 2.8L, Red Blood Count 4.04L, Hemoglobin 13.0L, Hematocrit 37.9L, Mean Corpuscular Volume 94, Mean Corpuscular Hemoglobin 32.3H, Mean Corpuscular Hemoglobin Concent 34.4, Red Cell Distribution Width 11.9, Platelet Count 196, Mean Platelet Volume 7.0, Neutrophils (%) (Auto) , Lymphocytes (%) ( Auto) , Monocytes (%) (Auto) , Eosinophils (%) (Auto) , Basophils (%) (Auto) , Neutrophils % (Manual) 86H, Lymphocytes % (Manual) 12L, Monocytes % (Manual) 2, Eosinophils % (Manual) 0, Basophils % (Manual) 0, Band Neutrophils 0, Platelet Estimate Adequate, Platelet Morphology Normal, Anisocytosis 1+, Sodium Level 135L, Potassium Level 3.9, Chloride Level 99, Carbon Dioxide Level 27, Anion Gap 9, Blood Urea Nitrogen 8, Creatinine 0.6, Estimat Glomerular Filtration Rate , Glucose Level 137H, Calcium Level 9.2 Current Medications Medications (Trade) Dose Ordered Sig/Solis Route PRN Reason Start Time Stop Time Status Last Admin Dose Admin Acetaminophen (Tylenol) 650 mg Q4H PRN ORAL fever 03/10/17 07:30 04/09/17 07:29 Al Hydroxide/Mg Hydroxide (Mylanta II) 30 ml Q6H PRN ORAL dyspepsia 03/10/17 07:30 04/09/17 07:29 Albuterol/ Ipratropium (Albuterol/ Ipratropium) 3 ml EVERY 4 HOURS PRN HHN Shortness of Breath 03/10/17 07:30 03/15/17 07:29 03/11/17 17:50 Aspirin (Ecotrin) 81 mg DAILY ORAL 03/10/17 09:00 04/09/17 08:59 03/14/17 08:30 Escitalopram Oxalate (Lexapro) 20 mg DAILY ORAL 03/12/17 09:00 04/11/17 08:59 03/14/17 08:30 Finasteride (Proscar) 5 mg DAILY ORAL 03/10/17 09:00 04/09/17 08:59 03/14/17 08:30 Fluconazole 50 ml @ 50 mls/hr Q24H IV 03/10/17 14:00 03/17/17 13:59 03/14/17 14:27 Heparin Sodium (Porcine) (Heparin 5000 units/ml) 5,000 units EVERY 12 HOURS SUBQ 03/10/17 09:00 04/09/17 08:59 03/14/17 08:33 Levofloxacin 150 ml @ 100 mls/hr Q24H IVPB 03/10/17 13:00 03/17/17 12:59 03/14/17 12:40 Lorazepam (Ativan) 1 mg Q6H PRN ORAL For Anxiety 03/11/17 21:30 03/18/17 21:29 03/12/17 11:02 Methylprednisolone Sodium Succinate (Solu-MEDROL) 40 mg Q12HR IVP 03/13/17 21:00 04/12/17 20:59 03/14/17 08:30 Metronidazole (Flagyl) 500 mg Q8HR ORAL 03/14/17 14:00 03/21/17 13:59 03/14/17 14:26 Nitroglycerin (Ntg) 0.4 mg Q5M PRN SL Prn Chest Pain 03/10/17 07:30 04/09/17 07:29 Ondansetron HCl (Zofran) 4 mg Q6H PRN IVP Nausea & Vomiting 03/10/17 07:30 04/09/17 07:29 Polyethylene Glycol (Miralax) 17 gm DAILYPRN PRN ORAL Constipation 03/10/17 07:30 04/09/17 07:29 Promethazine HCl/ Codeine (Phenergan with Codeine) 5 ml Q4H PRN ORAL For Cough 03/10/17 07:30 04/09/17 07:29 03/12/17 09:30 Tamsulosin HCl (Flomax) 0.4 mg BEDTIME ORAL 03/10/17 21:00 04/09/17 20:59 03/13/17 20:30 Temazepam (Restoril) 15 mg HSPRN PRN ORAL Insomnia 03/10/17 07:30 03/17/17 07:29 03/13/17 20:30 [facility] HospitalKathi Stevens NP Mar 14, 2017 14:49
[2017-03-14 16:00] VITALS: BP 126/59
[2017-03-14] MEDS: Albuterol/Ipratropium 3ml neb HHN PRN (16:22)
[2017-03-14 20:00] VITALS: BP 113/57
[2017-03-14] MEDS: Tamsulosin 0.4mg cap ORAL SCH (21:40)
[2017-03-15] VITALS: BP 109/63
[2017-03-15 04:00] VITALS: BP 119/62
[2017-03-15] MEDS: metroNIDAZOLE 500mg tab ORAL SCH ×3 (06:34→21:05)
[2017-03-15 08:00] VITALS: BP 115/59
[2017-03-15] MEDS: Aspirin EC 81mg tab ORAL SCH (08:37)
[2017-03-15] MEDS: Solu-MEDROL 40mg Inj IVP SCH (08:38)
[2017-03-15] MEDS: Heparin 5000 units/ml inj SUBQ SCH ×2 (08:40→21:06)
[2017-03-15 12:00] VITALS: BP 136/84
--- NOTE | 2017-03-15 12:03 | Pulmonology Progress Note ---
Assessment/Plan Assessment/Plan ASSESSMENT possible sepsis( initial fever, leukocytosis, now leukopenia) PNA COPD Oral thrush Laryngeal cancer CAD anxiety disorder BPH chronic knee pain PLAN OF CARE [place] floor O2, titrate pulse ox stable with ambulation HHN and CPT Fluconazole and empiric abx ID follows Sputum cx + Sandra, -colonizer as per ID; urine cx +mixed GPO, blood cx prel negative Fup with CXR in am low dose steroids a/tussive prn DVT prophylaxis Pain management Bowel regimen Continue Flomax continue ASA psych follows started on Lexapro dc plan case discussed and evaluated by supervising physician Subjective Allergies: Coded Allergies: SULFA (SULFONAMIDE ANTIBIOTICS) (Unverified Allergy, Unknown, 03/10/17) Subjective afebrile , no leukocytosis ( kleukopenia now), weak + coughing, no hemoptysis, clinically with improvement SOB with ambulation Objective Last 24 Hour Vital Signs Date Time Temp Pulse Resp B/P (MAP) Pulse Ox O2 Delivery O2 Flow Rate FiO2 03/15/17 08:15 Nasal Cannula 2.0 28 03/15/17 08:15 47 18 Nasal Cannula 2.0 28 03/15/17 08:00 97.3 65 20 115/59 94 03/15/17 04:00 97.9 85 18 119/62 94 Nasal Cannula 2.0 03/15/17 00:00 99.3 105 18 109/63 100 Nasal Cannula 2.0 03/14/17 21:00 72 18 Nasal Cannula 2.0 28 03/14/17 21:00 Nasal Cannula 2.0 28 03/14/17 20:00 97.8 60 18 113/57 97 Nasal Cannula 2.0 03/14/17 16:33 68 18 99 Nasal Cannula 3.0 32 03/14/17 16:22 72 16 97 Nasal Cannula 3.0 32 03/14/17 16:00 97.6 72 19 126/59 94 Room Air Intake and Output 03/14/17 03/15/17 19:00 07:00 Intake Total 1262.5 ml Output Total 200 ml 1150 ml Balance 1062.5 ml -1150 ml Intake Oral 980 ml IV Total 282.5 ml Output Urine Total 200 ml 1150 ml # Voids 4 3 # Bowel Movements 1 Objective General Appearance: no acute distress HEENT: normocephalic, atraumatic, anicteric, mucous membranes moist Respiratory/Chest: few scattered rhonchi, Cardiovascular: no JVD Abdomen: soft, non tender, non distended Extremities: no edema, pedal pulses normal Neurologic/Psychiatric: alert, responsive Musculoskeletal: atrophy - BLE Current Medications Medications (Trade) Dose Ordered Sig/Solis Route PRN Reason Start Time Stop Time Status Last Admin Dose Admin Acetaminophen (Tylenol) 650 mg Q4H PRN ORAL fever 03/10/17 07:30 04/09/17 07:29 Al Hydroxide/Mg Hydroxide (Mylanta II) 30 ml Q6H PRN ORAL dyspepsia 03/10/17 07:30 04/09/17 07:29 Aspirin (Ecotrin) 81 mg DAILY ORAL 03/10/17 09:00 04/09/17 08:59 03/15/17 08:37 Escitalopram Oxalate (Lexapro) 20 mg DAILY ORAL 03/12/17 09:00 04/11/17 08:59 03/15/17 08:38 Finasteride (Proscar) 5 mg DAILY ORAL 03/10/17 09:00 04/09/17 08:59 03/15/17 08:38 Fluconazole 50 ml @ 50 mls/hr Q24H IV 03/10/17 14:00 03/17/17 13:59 03/14/17 14:27 Heparin Sodium (Porcine) (Heparin 5000 units/ml) 5,000 units EVERY 12 HOURS SUBQ 03/10/17 09:00 04/09/17 08:59 03/15/17 08:40 Levofloxacin 150 ml @ 100 mls/hr Q24H IVPB 03/10/17 13:00 03/17/17 12:59 03/14/17 12:40 Lorazepam (Ativan) 1 mg Q6H PRN ORAL For Anxiety 03/11/17 21:30 03/18/17 21:29 03/12/17 11:02 Methylprednisolone Sodium Succinate (Solu-MEDROL) 40 mg DAILY IVP 03/15/17 09:00 04/12/17 20:59 03/15/17 08:38 Metronidazole (Flagyl) 500 mg Q8HR ORAL 03/14/17 14:00 03/21/17 13:59 03/15/17 06:34 Nitroglycerin (Ntg) 0.4 mg Q5M PRN SL Prn Chest Pain 03/10/17 07:30 04/09/17 07:29 Ondansetron HCl (Zofran) 4 mg Q6H PRN IVP Nausea & Vomiting 03/10/17 07:30 04/09/17 07:29 Polyethylene Glycol (Miralax) 17 gm DAILYPRN PRN ORAL Constipation 03/10/17 07:30 04/09/17 07:29 Promethazine HCl/ Codeine (Phenergan with Codeine) 5 ml Q4H PRN ORAL For Cough 03/10/17 07:30 04/09/17 07:29 03/12/17 09:30 Tamsulosin HCl (Flomax) 0.4 mg BEDTIME ORAL 03/10/17 21:00 04/09/17 20:59 03/14/17 21:40 Temazepam (Restoril) 15 mg HSPRN PRN ORAL Insomnia 03/10/17 07:30 03/17/17 07:29 03/13/17 20:30 [facility] Mar 15, 2017 12:03
[2017-03-15 16:00] VITALS: BP 130/74
[2017-03-15 20:00] VITALS: BP 119/70
[2017-03-15] MEDS: Tamsulosin 0.4mg cap ORAL SCH (21:05)
[2017-03-16] VITALS: BP 144/76
[2017-03-16 04:00] VITALS: BP 133/60
[2017-03-16] MEDS: metroNIDAZOLE 500mg tab ORAL SCH ×3 (06:00→21:13)
[2017-03-16 08:00] VITALS: BP 150/88
--- NOTE | 2017-03-16 09:49 | Infectious Diseases Prog Note ---
Assessment/Plan Assessment/Plan Assessment/Plan The patient is a 82-year-old male with Fever, SP Leukocytosis , SP - now leukocpenia Possible underlying community-acquired pneumonia vs Asp Pneum Scx: NL Fl; Sandra: colonizer -CXR 03/14; Marked decrease in interstitial disease bilaterally. Oral thrush improving doubt urinary tract infection. Ucx mixed growth CRP 11.9 Throat and ? lung cancer Chronic knee pain depression. PLAN: start PO flagyl Continue Levaquin d# 7 / 7 and Flagyl # 3 /3, DC Diflucan d# 7 / 10 ( ok to DC w cont of oral Diflucan ) 03/14 SP Zosyn #5 (DCed given leukopenia) Monitor CBC. Monitor BMP. Monitor cultures (blood) Monitor chest x-ray. Subjective Constitutional: Denies: no symptoms, fever, chills, fatigue, anorexia, drenching sweats, other Allergies: Coded Allergies: SULFA (SULFONAMIDE ANTIBIOTICS) (Unverified Allergy, Unknown, 03/10/17) Subjective possible transfer to SNF today Objective Vital Signs Last 24 Hour Vital Signs Date Time Temp Pulse Resp B/P (MAP) Pulse Ox O2 Delivery O2 Flow Rate FiO2 03/16/17 08:00 96.8 62 20 150/88 92 03/16/17 04:00 97.3 59 18 133/60 96 Nasal Cannula 2.0 03/16/17 00:00 97.4 57 20 144/76 97 Nasal Cannula 2.0 03/15/17 20:00 98.2 58 18 119/70 96 Nasal Cannula 2.0 03/15/17 19:51 Nasal Cannula 2.0 28 03/15/17 19:50 63 18 Nasal Cannula 2.0 28 03/15/17 16:00 97.0 57 18 130/74 93 03/15/17 12:00 97.9 50 20 136/84 95 Height (Feet): 5 Height (Inches): 6.00 Weight (Pounds): 137 HEENT: mucous membranes moist Respiratory/Chest: no respiratory distress Abdomen: no organomegaly Current Medications Medications (Trade) Dose Ordered Sig/Solis Route PRN Reason Start Time Stop Time Status Last Admin Dose Admin Acetaminophen (Tylenol) 650 mg Q4H PRN ORAL fever 03/10/17 07:30 04/09/17 07:29 Al Hydroxide/Mg Hydroxide (Mylanta II) 30 ml Q6H PRN ORAL dyspepsia 03/10/17 07:30 04/09/17 07:29 Aspirin (Ecotrin) 81 mg DAILY ORAL 03/10/17 09:00 04/09/17 08:59 03/15/17 08:37 Escitalopram Oxalate (Lexapro) 20 mg DAILY ORAL 03/12/17 09:00 04/11/17 08:59 03/15/17 08:38 Finasteride (Proscar) 5 mg DAILY ORAL 03/10/17 09:00 04/09/17 08:59 03/15/17 08:38 Fluconazole 50 ml @ 50 mls/hr Q24H IV 03/10/17 14:00 03/17/17 13:59 03/15/17 14:45 Heparin Sodium (Porcine) (Heparin 5000 units/ml) 5,000 units EVERY 12 HOURS SUBQ 03/10/17 09:00 04/09/17 08:59 03/15/17 21:06 Levofloxacin 150 ml @ 100 mls/hr Q24H IVPB 03/10/17 13:00 03/17/17 12:59 03/15/17 12:48 Lorazepam (Ativan) 1 mg Q6H PRN ORAL For Anxiety 03/11/17 21:30 03/18/17 21:29 03/12/17 11:02 Methylprednisolone Sodium Succinate (Solu-MEDROL) 40 mg DAILY IVP 03/15/17 09:00 04/12/17 20:59 03/15/17 08:38 Metronidazole (Flagyl) 500 mg Q8HR ORAL 03/14/17 14:00 03/21/17 13:59 03/15/17 21:05 Nitroglycerin (Ntg) 0.4 mg Q5M PRN SL Prn Chest Pain 03/10/17 07:30 04/09/17 07:29 Ondansetron HCl (Zofran) 4 mg Q6H PRN IVP Nausea & Vomiting 03/10/17 07:30 04/09/17 07:29 Polyethylene Glycol (Miralax) 17 gm DAILYPRN PRN ORAL Constipation 03/10/17 07:30 04/09/17 07:29 Promethazine HCl/ Codeine (Phenergan with Codeine) 5 ml Q4H PRN ORAL For Cough 03/10/17 07:30 04/09/17 07:29 03/12/17 09:30 Tamsulosin HCl (Flomax) 0.4 mg BEDTIME ORAL 03/10/17 21:00 04/09/17 20:59 03/15/17 21:05 Temazepam (Restoril) 15 mg HSPRN PRN ORAL Insomnia 03/10/17 07:30 03/17/17 07:29 03/15/17 21:05 YANDY PASTOR M.D. Mar 16, 2017 09:49
[2017-03-16] MEDS: Aspirin EC 81mg tab ORAL SCH (09:58)
[2017-03-16] MEDS: Heparin 5000 units/ml inj SUBQ SCH ×2 (10:00→21:16)
[2017-03-16] MEDS: Solu-MEDROL 40mg Inj IVP SCH (11:23)
[2017-03-16 12:00] VITALS: BP 148/66
[2017-03-16 12:38] LABS: BASOPHILS % (AUTO) 0.5 % (0.0-2.0); HEMATOCRIT 39.5 % (42.0-52.0); HEMOGLOBIN 13.3 G/DL (14.2-18.0); LYMPHOCYTES % (AUTO) 11.1 % (20.0-45.0); MEAN CORPUSCULAR VOLUME 94 FL (80-99); MONOCYTES % (AUTO) 9.4 % (1.0-10.0); NEUTROPHILS % (AUTO) 78.1 % (45.0-75.0); PLATELET COUNT 201 K/UL (150-450); RED BLOOD COUNT 4.21 M/UL (4.70-6.10); RED CELL DISTRIBUTION WIDTH 12.7 % (11.6-14.8); WHITE BLOOD COUNT 8.1 K/UL (4.8-10.8)
[2017-03-16 12:42] LABS: ANION GAP 5 mmol/L (5-15); BLOOD UREA NITROGEN 16 mg/dL (7-18); CARBON DIOXIDE 29 MMOL/L (21-32); CHLORIDE 99 MMOL/L (98-107); CREATININE 0.7 MG/DL (0.55-1.30); POTASSIUM 3.8 MMOL/L (3.5-5.1); SODIUM 133 MMOL/L (136-145)
[2017-03-16] MEDS ORDERED: FLUCONAZOLE100 MG ORAL (15:58)
[2017-03-16 16:00] VITALS: BP 139/72
--- NOTE | 2017-03-16 16:05 | Pulmonology Progress Note ---
Assessment/Plan Problems: (1) Pneumonia (2) COPD (chronic obstructive pulmonary disease) (3) Laryngeal cancer (4) CAD (coronary artery disease) Assessment/Plan respiratory treatment continue abx, on diflucan now check cultures titrate fio2 chest pt all notes and meds reviewed Subjective ROS Limited/Unobtainable: No Constitutional: Reports: no symptoms Allergies: Coded Allergies: SULFA (SULFONAMIDE ANTIBIOTICS) (Unverified Allergy, Unknown, 03/10/17) Objective Last 24 Hour Vital Signs Date Time Temp Pulse Resp B/P (MAP) Pulse Ox O2 Delivery O2 Flow Rate FiO2 03/16/17 12:00 97.2 57 20 148/66 97 03/16/17 08:00 96.8 62 20 150/88 92 03/16/17 07:56 66 20 Room Air 03/16/17 07:55 Room Air 03/16/17 04:00 97.3 59 18 133/60 96 Nasal Cannula 2.0 03/16/17 00:00 97.4 57 20 144/76 97 Nasal Cannula 2.0 03/15/17 20:00 98.2 58 18 119/70 96 Nasal Cannula 2.0 03/15/17 19:51 Nasal Cannula 2.0 28 03/15/17 19:50 63 18 Nasal Cannula 2.0 28 03/15/17 16:00 97.0 57 18 130/74 93 Intake and Output 03/15/17 03/16/17 19:00 07:00 Intake Total 1280 ml 500 ml Output Total 800 ml 1350 ml Balance 480 ml -850 ml Intake Oral 1080 ml 500 ml IV Total 200 ml Output Urine Total 800 ml 1350 ml # Voids 3 5 # Bowel Movements 2 Objective General Appearance: WD/WN HEENT: normocephalic, atraumatic Respiratory/Chest: chest wall non-tender, lungs clear Cardiovascular: normal peripheral pulses, normal rate Abdomen: normal bowel sounds, soft, non tender Genitourinary: normal external genitalia Extremities: no cyanosis 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, no motor/sensory deficits Lymphatic: no neck adenopathy Laboratory Tests 03/16/17 12:10: White Blood Count 8.1, Red Blood Count 4.21L, Hemoglobin 13.3L, Hematocrit 39.5L , Mean Corpuscular Volume 94, Mean Corpuscular Hemoglobin 31.6H, Mean Corpuscular Hemoglobin Concent 33.7, Red Cell Distribution Width 12.7, Platelet Count 201, Mean Platelet Volume 7.2, Neutrophils (%) (Auto) 78.1H, Lymphocytes ( %) (Auto) 11.1L, Monocytes (%) (Auto) 9.4, Eosinophils (%) (Auto) 1.0, Basophils (%) (Auto) 0.5, Sodium Level 133L, Potassium Level 3.8, Chloride Level 99, Carbon Dioxide Level 29, Anion Gap 5, Blood Urea Nitrogen 16, Creatinine 0.7, Estimat Glomerular Filtration Rate , Glucose Level 109H, Calcium Level 9.0 Current Medications Medications (Trade) Dose Ordered Sig/Solis Route PRN Reason Start Time Stop Time Status Last Admin Dose Admin Acetaminophen (Tylenol) 650 mg Q4H PRN ORAL fever 03/10/17 07:30 04/09/17 07:29 Al Hydroxide/Mg Hydroxide (Mylanta II) 30 ml Q6H PRN ORAL dyspepsia 03/10/17 07:30 04/09/17 07:29 Aspirin (Ecotrin) 81 mg DAILY ORAL 03/10/17 09:00 04/09/17 08:59 03/16/17 09:58 Escitalopram Oxalate (Lexapro) 20 mg DAILY ORAL 03/12/17 09:00 04/11/17 08:59 03/16/17 09:58 Finasteride (Proscar) 5 mg DAILY ORAL 03/10/17 09:00 04/09/17 08:59 03/16/17 09:58 Fluconazole 50 ml @ 50 mls/hr Q24H IV 03/10/17 14:00 03/17/17 23:59 03/15/17 14:45 Heparin Sodium (Porcine) (Heparin 5000 units/ml) 5,000 units EVERY 12 HOURS SUBQ 03/10/17 09:00 04/09/17 08:59 03/16/17 10:00 Levofloxacin 150 ml @ 100 mls/hr Q24H IVPB 03/10/17 13:00 03/16/17 23:00 03/16/17 13:27 Lorazepam (Ativan) 1 mg Q6H PRN ORAL For Anxiety 03/11/17 21:30 03/18/17 21:29 03/12/17 11:02 Metronidazole (Flagyl) 500 mg Q8HR ORAL 03/14/17 14:00 03/16/17 23:00 03/15/17 21:05 Nitroglycerin (Ntg) 0.4 mg Q5M PRN SL Prn Chest Pain 03/10/17 07:30 04/09/17 07:29 Ondansetron HCl (Zofran) 4 mg Q6H PRN IVP Nausea & Vomiting 03/10/17 07:30 04/09/17 07:29 Polyethylene Glycol (Miralax) 17 gm DAILYPRN PRN ORAL Constipation 03/10/17 07:30 04/09/17 07:29 Promethazine HCl/ Codeine (Phenergan with Codeine) 5 ml Q4H PRN ORAL For Cough 03/10/17 07:30 04/09/17 07:29 03/12/17 09:30 Tamsulosin HCl (Flomax) 0.4 mg BEDTIME ORAL 03/10/17 21:00 04/09/17 20:59 03/15/17 21:05 Temazepam (Restoril) 15 mg HSPRN PRN ORAL Insomnia 03/10/17 07:30 03/17/17 07:29 03/15/17 21:05 QIAN GARCIA Mar 16, 2017 16:05
--- NOTE | 2017-03-16 16:30 | Diagnostic Imaging Report ---
Indication: Dyspnea Technique: XRAY Chest 1v Comparison: 03/14/2017 Findings: Heart size and mediastinal contours are stable. Perihilar and basilar interstitial opacities have increased. Question development of trace right pleural effusion. No pneumothorax. No acute osseous abnormality seen. Impression: Increased interstitial opacification/edema compared to 2 days prior with development of a trace right pleural effusion
[2017-03-16] MEDS ORDERED: Tubing IV Secondary IV ONE (17:05)
[2017-03-16 20:00] VITALS: BP 122/82
[2017-03-16] MEDS: Tamsulosin 0.4mg cap ORAL SCH (21:13)
[2017-03-17] VITALS (7 sets, daily range): BP systolic 120–141; BP diastolic 58–81
--- NOTE | 2017-03-17 00:20 | General Progress Note ---
Assessment/Plan Status: stable, progressing Assessment/Plan mdd anxiety -cont current meds Subjective Date patient seen: Mar 16, 2017 Neurologic/Psychiatric: Reports: anxiety, depressed, emotional problems Allergies: Coded Allergies: SULFA (SULFONAMIDE ANTIBIOTICS) (Unverified Allergy, Unknown, 03/10/17) Objective Last 24 Hour Vital Signs Date Time Temp Pulse Resp B/P (MAP) Pulse Ox O2 Delivery O2 Flow Rate FiO2 03/16/17 20:24 97 Nasal Cannula 3.0 03/16/17 20:11 Nasal Cannula 2.0 28 03/16/17 20:10 54 20 Room Air 03/16/17 20:00 97.8 52 21 122/82 95 03/16/17 16:00 97.1 61 13 139/72 97 Room Air 03/16/17 12:00 97.2 57 20 148/66 97 03/16/17 08:00 96.8 62 20 150/88 92 03/16/17 07:56 66 20 Room Air 03/16/17 07:55 Room Air 03/16/17 04:00 97.3 59 18 133/60 96 Nasal Cannula 2.0 Intake and Output 03/16/17 03/17/17 19:00 07:00 Intake Total 580 ml Output Total 300 ml Balance 280 ml Intake Oral 380 ml IV Total 200 ml Output Urine Total 300 ml # Voids 4 # Bowel Movements 1 Laboratory Tests 03/16/17 12:10: White Blood Count 8.1, Red Blood Count 4.21L, Hemoglobin 13.3L, Hematocrit 39.5L , Mean Corpuscular Volume 94, Mean Corpuscular Hemoglobin 31.6H, Mean Corpuscular Hemoglobin Concent 33.7, Red Cell Distribution Width 12.7, Platelet Count 201, Mean Platelet Volume 7.2, Neutrophils (%) (Auto) 78.1H, Lymphocytes ( %) (Auto) 11.1L, Monocytes (%) (Auto) 9.4, Eosinophils (%) (Auto) 1.0, Basophils (%) (Auto) 0.5, Sodium Level 133L, Potassium Level 3.8, Chloride Level 99, Carbon Dioxide Level 29, Anion Gap 5, Blood Urea Nitrogen 16, Creatinine 0.7, Estimat Glomerular Filtration Rate , Glucose Level 109H, Calcium Level 9.0 Height (Feet): 5 Height (Inches): 6.00 Weight (Pounds): 137 General Appearance: no apparent distress, alert, agitated Neurologic: alert, oriented x 3, responsive, depressed affect Catie Killian M.D. Mar 17, 2017 00:20
--- NOTE | 2017-03-17 00:21 | Geriatric Progress Note ---
Subjective Interval Events 03/15/17 Mood/Memory: Reports: prior hx, anxiety, depressed feelings Geriatric Geriatric Last 24 Hour Vital Signs Date Time Temp Pulse Resp B/P (MAP) Pulse Ox O2 Delivery O2 Flow Rate FiO2 03/16/17 20:24 97 Nasal Cannula 3.0 03/16/17 20:11 Nasal Cannula 2.0 28 03/16/17 20:10 54 20 Room Air 03/16/17 20:00 97.8 52 21 122/82 95 03/16/17 16:00 97.1 61 13 139/72 97 Room Air 03/16/17 12:00 97.2 57 20 148/66 97 03/16/17 08:00 96.8 62 20 150/88 92 03/16/17 07:56 66 20 Room Air 03/16/17 07:55 Room Air 03/16/17 04:00 97.3 59 18 133/60 96 Nasal Cannula 2.0 Intake and Output 03/16/17 03/17/17 19:00 07:00 Intake Total 580 ml Output Total 300 ml Balance 280 ml Intake Oral 380 ml IV Total 200 ml Output Urine Total 300 ml # Voids 4 # Bowel Movements 1 Laboratory Tests Test 03/16/17 12:10 White Blood Count 8.1 K/UL (4.8-10.8) Red Blood Count 4.21 M/UL (4.70-6.10) L Hemoglobin 13.3 G/DL (14.2-18.0) L Hematocrit 39.5 % (42.0-52.0) L Mean Corpuscular Volume 94 FL (80-99) Mean Corpuscular Hemoglobin 31.6 PG (27.0-31.0) H Mean Corpuscular Hemoglobin Concent 33.7 G/DL (32.0-36.0) Red Cell Distribution Width 12.7 % (11.6-14.8) Platelet Count 201 K/UL (150-450) Mean Platelet Volume 7.2 FL (6.5-10.1) Neutrophils (%) (Auto) 78.1 % (45.0-75.0) H Lymphocytes (%) (Auto) 11.1 % (20.0-45.0) L Monocytes (%) (Auto) 9.4 % (1.0-10.0) Eosinophils (%) (Auto) 1.0 % (0.0-3.0) Basophils (%) (Auto) 0.5 % (0.0-2.0) Sodium Level 133 MMOL/L (136-145) L Potassium Level 3.8 MMOL/L (3.5-5.1) Chloride Level 99 MMOL/L (98-107) Carbon Dioxide Level 29 MMOL/L (21-32) Anion Gap 5 mmol/L (5-15) Blood Urea Nitrogen 16 mg/dL (7-18) Creatinine 0.7 MG/DL (0.55-1.30) Estimat Glomerular Filtration Rate mL/min (>60) Glucose Level 109 MG/DL (74-106) H Calcium Level 9.0 MG/DL (8.5-10.1) Current Medications Medications (Trade) Dose Ordered Sig/Solis Route PRN Reason Start Time Stop Time Status Last Admin Dose Admin Acetaminophen (Tylenol) 650 mg Q4H PRN ORAL fever 03/10/17 07:30 04/09/17 07:29 Al Hydroxide/Mg Hydroxide (Mylanta II) 30 ml Q6H PRN ORAL dyspepsia 03/10/17 07:30 04/09/17 07:29 Aspirin (Ecotrin) 81 mg DAILY ORAL 03/10/17 09:00 04/09/17 08:59 03/16/17 09:58 Escitalopram Oxalate (Lexapro) 20 mg DAILY ORAL 03/12/17 09:00 04/11/17 08:59 03/16/17 09:58 Finasteride (Proscar) 5 mg DAILY ORAL 03/10/17 09:00 04/09/17 08:59 03/16/17 09:58 Fluconazole 50 ml @ 50 mls/hr Q24H IV 03/10/17 14:00 03/17/17 23:59 03/16/17 16:24 Heparin Sodium (Porcine) (Heparin 5000 units/ml) 5,000 units EVERY 12 HOURS SUBQ 03/10/17 09:00 04/09/17 08:59 03/16/17 21:16 Lorazepam (Ativan) 1 mg Q6H PRN ORAL For Anxiety 03/11/17 21:30 03/18/17 21:29 03/12/17 11:02 Nitroglycerin (Ntg) 0.4 mg Q5M PRN SL Prn Chest Pain 03/10/17 07:30 04/09/17 07:29 Ondansetron HCl (Zofran) 4 mg Q6H PRN IVP Nausea & Vomiting 03/10/17 07:30 04/09/17 07:29 Polyethylene Glycol (Miralax) 17 gm DAILYPRN PRN ORAL Constipation 03/10/17 07:30 04/09/17 07:29 Promethazine HCl/ Codeine (Phenergan with Codeine) 5 ml Q4H PRN ORAL For Cough 03/10/17 07:30 04/09/17 07:29 03/12/17 09:30 Tamsulosin HCl (Flomax) 0.4 mg BEDTIME ORAL 03/10/17 21:00 04/09/17 20:59 03/16/17 21:13 Temazepam (Restoril) 15 mg HSPRN PRN ORAL Insomnia 03/10/17 07:30 03/17/17 07:29 03/15/17 21:05 Height (Feet): 5 Height (Inches): 6.00 Weight (Pounds): 137 General Appearance: alert Neurologic: alert, oriented x3, responsive Psychiatric Orientation: person, place, time, situation Affect: appropriate Catie Killian M.D. Mar 17, 2017 00:21
[2017-03-17] MEDS: Aspirin EC 81mg tab ORAL SCH (08:13)
[2017-03-17] MEDS: Heparin 5000 units/ml inj SUBQ SCH ×2 (08:15→21:07)
--- NOTE | 2017-03-17 09:54 | Infectious Diseases Prog Note ---
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 Oral thrush improving doubt urinary tract infection. Ucx mixed growth CRP 11.9 Throat and ? lung cancer Chronic knee pain depression. PLAN: cont Diflucan d# 8 / 10 ( ok to DC w cont of oral Diflucan ) 03/16 SP Levaquin d# 7 / 7 and Flagyl # 3 /3, 03/14 SP Zosyn #5 (DCed given leukopenia) Monitor CBC. Monitor BMP Monitor chest x-ray. Subjective Constitutional: Denies: no symptoms, fever, chills, fatigue, anorexia, drenching sweats, other Allergies: Coded Allergies: SULFA (SULFONAMIDE ANTIBIOTICS) (Unverified Allergy, Unknown, 03/10/17) Subjective afebrile Objective Vital Signs Last 24 Hour Vital Signs Date Time Temp Pulse Resp B/P (MAP) Pulse Ox O2 Delivery O2 Flow Rate FiO2 03/17/17 08:10 97.5 59 18 139/59 97 03/17/17 08:00 97.1 18 126/80 95 03/17/17 04:00 97.5 54 20 128/58 95 03/17/17 00:00 97.5 51 21 120/68 96 03/16/17 20:24 97 Nasal Cannula 3.0 03/16/17 20:11 Nasal Cannula 2.0 28 03/16/17 20:10 54 20 Room Air 03/16/17 20:00 97.8 52 21 122/82 95 03/16/17 16:00 97.1 61 13 139/72 97 Room Air 03/16/17 12:00 97.2 57 20 148/66 97 Height (Feet): 5 Height (Inches): 6.00 Weight (Pounds): 137 HEENT: anicteric Respiratory/Chest: normal breath sounds Cardiovascular: normal rate Abdomen: soft, non tender Laboratory Tests Test 03/16/17 12:10 White Blood Count 8.1 K/UL (4.8-10.8) Red Blood Count 4.21 M/UL (4.70-6.10) L Hemoglobin 13.3 G/DL (14.2-18.0) L Hematocrit 39.5 % (42.0-52.0) L Mean Corpuscular Volume 94 FL (80-99) Mean Corpuscular Hemoglobin 31.6 PG (27.0-31.0) H Mean Corpuscular Hemoglobin Concent 33.7 G/DL (32.0-36.0) Red Cell Distribution Width 12.7 % (11.6-14.8) Platelet Count 201 K/UL (150-450) Mean Platelet Volume 7.2 FL (6.5-10.1) Neutrophils (%) (Auto) 78.1 % (45.0-75.0) H Lymphocytes (%) (Auto) 11.1 % (20.0-45.0) L Monocytes (%) (Auto) 9.4 % (1.0-10.0) Eosinophils (%) (Auto) 1.0 % (0.0-3.0) Basophils (%) (Auto) 0.5 % (0.0-2.0) Sodium Level 133 MMOL/L (136-145) L Potassium Level 3.8 MMOL/L (3.5-5.1) Chloride Level 99 MMOL/L (98-107) Carbon Dioxide Level 29 MMOL/L (21-32) Anion Gap 5 mmol/L (5-15) Blood Urea Nitrogen 16 mg/dL (7-18) Creatinine 0.7 MG/DL (0.55-1.30) Estimat Glomerular Filtration Rate mL/min (>60) Glucose Level 109 MG/DL (74-106) H Calcium Level 9.0 MG/DL (8.5-10.1) Current Medications Medications (Trade) Dose Ordered Sig/Solis Route PRN Reason Start Time Stop Time Status Last Admin Dose Admin Acetaminophen (Tylenol) 650 mg Q4H PRN ORAL fever 03/10/17 07:30 04/09/17 07:29 Al Hydroxide/Mg Hydroxide (Mylanta II) 30 ml Q6H PRN ORAL dyspepsia 03/10/17 07:30 04/09/17 07:29 Aspirin (Ecotrin) 81 mg DAILY ORAL 03/10/17 09:00 04/09/17 08:59 03/17/17 08:13 Escitalopram Oxalate (Lexapro) 20 mg DAILY ORAL 03/12/17 09:00 04/11/17 08:59 03/17/17 08:14 Finasteride (Proscar) 5 mg DAILY ORAL 03/10/17 09:00 04/09/17 08:59 03/17/17 08:14 Fluconazole 50 ml @ 50 mls/hr Q24H IV 03/10/17 14:00 03/17/17 23:59 03/16/17 16:24 Heparin Sodium (Porcine) (Heparin 5000 units/ml) 5,000 units EVERY 12 HOURS SUBQ 03/10/17 09:00 04/09/17 08:59 03/17/17 08:15 Lorazepam (Ativan) 1 mg Q6H PRN ORAL For Anxiety 03/11/17 21:30 03/18/17 21:29 03/12/17 11:02 Nitroglycerin (Ntg) 0.4 mg Q5M PRN SL Prn Chest Pain 03/10/17 07:30 04/09/17 07:29 Ondansetron HCl (Zofran) 4 mg Q6H PRN IVP Nausea & Vomiting 03/10/17 07:30 04/09/17 07:29 Polyethylene Glycol (Miralax) 17 gm DAILYPRN PRN ORAL Constipation 03/10/17 07:30 04/09/17 07:29 Promethazine HCl/ Codeine (Phenergan with Codeine) 5 ml Q4H PRN ORAL For Cough 03/10/17 07:30 04/09/17 07:29 03/12/17 09:30 Tamsulosin HCl (Flomax) 0.4 mg BEDTIME ORAL 03/10/17 21:00 04/09/17 20:59 03/16/17 21:13 YANDY PASTOR M.D. Mar 17, 2017 09:54
--- NOTE | 2017-03-17 12:22 | Pulmonology Progress Note ---
Assessment/Plan Problems: (1) Pneumonia (2) COPD (chronic obstructive pulmonary disease) (3) Laryngeal cancer (4) CAD (coronary artery disease) Assessment/Plan respiratory treatment continue abx, on diflucan now check cultures titrate fio2 chest pt all notes and meds reviewed dc planning in progress. Subjective ROS Limited/Unobtainable: No Constitutional: Reports: no symptoms HEENT: Repors: no symptoms Allergies: Coded Allergies: SULFA (SULFONAMIDE ANTIBIOTICS) (Unverified Allergy, Unknown, 03/10/17) Objective Last 24 Hour Vital Signs Date Time Temp Pulse Resp B/P (MAP) Pulse Ox O2 Delivery O2 Flow Rate FiO2 03/17/17 08:10 97.5 59 18 139/59 97 03/17/17 08:00 97.1 18 126/80 95 03/17/17 04:00 97.5 54 20 128/58 95 03/17/17 00:00 97.5 51 21 120/68 96 03/16/17 20:24 97 Nasal Cannula 3.0 03/16/17 20:11 Nasal Cannula 2.0 28 03/16/17 20:10 54 20 Room Air 03/16/17 20:00 97.8 52 21 122/82 95 03/16/17 16:00 97.1 61 13 139/72 97 Room Air Intake and Output 03/16/17 03/17/17 19:00 07:00 Intake Total 580 ml Output Total 300 ml 1000 ml Balance 280 ml -1000 ml Intake Oral 380 ml IV Total 200 ml Output Urine Total 300 ml 1000 ml # Voids 4 # Bowel Movements 1 Objective General Appearance: WD/WN HEENT: normocephalic, atraumatic Respiratory/Chest: chest wall non-tender, lungs clear Cardiovascular: normal peripheral pulses, normal rate Abdomen: normal bowel sounds, soft, non tender Genitourinary: normal external genitalia Extremities: no cyanosis 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, no motor/sensory deficits Lymphatic: no neck adenopathy Current Medications Medications (Trade) Dose Ordered Sig/Solis Route PRN Reason Start Time Stop Time Status Last Admin Dose Admin Acetaminophen (Tylenol) 650 mg Q4H PRN ORAL fever 03/10/17 07:30 04/09/17 07:29 Al Hydroxide/Mg Hydroxide (Mylanta II) 30 ml Q6H PRN ORAL dyspepsia 03/10/17 07:30 04/09/17 07:29 Aspirin (Ecotrin) 81 mg DAILY ORAL 03/10/17 09:00 04/09/17 08:59 03/17/17 08:13 Escitalopram Oxalate (Lexapro) 20 mg DAILY ORAL 03/12/17 09:00 04/11/17 08:59 03/17/17 08:14 Finasteride (Proscar) 5 mg DAILY ORAL 03/10/17 09:00 04/09/17 08:59 03/17/17 08:14 Fluconazole 50 ml @ 50 mls/hr Q24H IV 03/10/17 14:00 03/17/17 23:59 03/16/17 16:24 Heparin Sodium (Porcine) (Heparin 5000 units/ml) 5,000 units EVERY 12 HOURS SUBQ 03/10/17 09:00 04/09/17 08:59 03/17/17 08:15 Lorazepam (Ativan) 1 mg Q6H PRN ORAL For Anxiety 03/11/17 21:30 03/18/17 21:29 03/12/17 11:02 Nitroglycerin (Ntg) 0.4 mg Q5M PRN SL Prn Chest Pain 03/10/17 07:30 04/09/17 07:29 Ondansetron HCl (Zofran) 4 mg Q6H PRN IVP Nausea & Vomiting 03/10/17 07:30 04/09/17 07:29 Polyethylene Glycol (Miralax) 17 gm DAILYPRN PRN ORAL Constipation 03/10/17 07:30 04/09/17 07:29 Promethazine HCl/ Codeine (Phenergan with Codeine) 5 ml Q4H PRN ORAL For Cough 03/10/17 07:30 04/09/17 07:29 03/12/17 09:30 Tamsulosin HCl (Flomax) 0.4 mg BEDTIME ORAL 03/10/17 21:00 04/09/17 20:59 03/16/17 21:13 QIAN GARCIA Mar 17, 2017 12:22
[2017-03-17] MEDS: Tamsulosin 0.4mg cap ORAL SCH (21:05)
--- NOTE | 2017-03-17 21:15 | General Progress Note ---
Assessment/Plan Status: stable, progressing Assessment/Plan mdd anxiety -cont current meds Subjective Date patient seen: Mar 17, 2017 Neurologic/Psychiatric: Reports: anxiety, depressed, emotional problems Allergies: Coded Allergies: SULFA (SULFONAMIDE ANTIBIOTICS) (Unverified Allergy, Unknown, 03/10/17) Objective Last 24 Hour Vital Signs Date Time Temp Pulse Resp B/P (MAP) Pulse Ox O2 Delivery O2 Flow Rate FiO2 03/17/17 20:15 65 19 Room Air 03/17/17 20:15 Room Air 03/17/17 20:15 94 Room Air 03/17/17 20:13 97.5 60 18 141/77 94 03/17/17 16:00 98.1 58 18 138/81 94 Room Air 03/17/17 12:00 97.2 58 20 125/65 96 03/17/17 08:10 97.5 59 18 139/59 97 03/17/17 08:00 97.1 18 126/80 95 03/17/17 07:08 Room Air 03/17/17 07:08 61 19 Room Air 03/17/17 07:08 97 Room Air 03/17/17 04:00 97.5 54 20 128/58 95 03/17/17 00:00 97.5 51 21 120/68 96 Intake and Output 03/16/17 03/17/17 19:00 07:00 Intake Total 580 ml Output Total 300 ml 1000 ml Balance 280 ml -1000 ml Intake Oral 380 ml IV Total 200 ml Output Urine Total 300 ml 1000 ml # Voids 4 # Bowel Movements 1 Height (Feet): 5 Height (Inches): 6.00 Weight (Pounds): 137 General Appearance: no apparent distress, alert Neurologic: alert, oriented x 3, responsive, depressed affect Catie Killian M.D. Mar 17, 2017 21:15
[2017-03-18] VITALS: BP 143/85
[2017-03-18 04:00] VITALS: BP 111/78
[2017-03-18 08:00] VITALS: BP 119/74
[2017-03-18] MEDS: Aspirin EC 81mg tab ORAL SCH (08:23)
[2017-03-18] MEDS: Heparin 5000 units/ml inj SUBQ SCH ×2 (08:29→20:29)
[2017-03-18] MEDS: LORazepam 1mg tab ORAL PRN ×2 (08:30→20:28)
--- NOTE | 2017-03-18 10:38 | Infectious Diseases Prog Note ---
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 Oral thrush improving doubt urinary tract infection. Ucx mixed growth CRP 11.9 Throat and ? lung cancer Chronic knee pain depression. PLAN: cont Diflucan d# 9 / 10 ( ok to DC w cont of oral Diflucan ) 03/16 SP Levaquin d# 7 / 7 and Flagyl # 3 /3, 03/14 SP Zosyn #5 (DCed given leukopenia) Monitor CBC. Monitor BMP Monitor chest x-ray. Subjective Constitutional: Denies: no symptoms, fever, chills, fatigue, anorexia, drenching sweats, other Allergies: Coded Allergies: SULFA (SULFONAMIDE ANTIBIOTICS) (Unverified Allergy, Unknown, 03/10/17) Subjective afebrile Objective Vital Signs Last 24 Hour Vital Signs Date Time Temp Pulse Resp B/P (MAP) Pulse Ox O2 Delivery O2 Flow Rate FiO2 03/18/17 08:00 98.1 72 20 119/74 98 03/18/17 07:54 90 18 Room Air 03/18/17 07:54 96 Room Air 03/18/17 07:54 Room Air 03/18/17 04:00 97.9 89 20 111/78 96 03/18/17 00:00 96.6 51 20 143/85 95 03/17/17 20:15 65 19 Room Air 03/17/17 20:15 Room Air 03/17/17 20:15 94 Room Air 03/17/17 20:13 97.5 60 18 141/77 94 03/17/17 16:00 98.1 58 18 138/81 94 Room Air 03/17/17 12:00 97.2 58 20 125/65 96 Height (Feet): 5 Height (Inches): 6.00 Weight (Pounds): 137 HEENT: anicteric Respiratory/Chest: normal breath sounds Cardiovascular: regular rhythm Abdomen: no organomegaly Current Medications Medications (Trade) Dose Ordered Sig/Solis Route PRN Reason Start Time Stop Time Status Last Admin Dose Admin Acetaminophen (Tylenol) 650 mg Q4H PRN ORAL fever 03/10/17 07:30 04/09/17 07:29 Al Hydroxide/Mg Hydroxide (Mylanta II) 30 ml Q6H PRN ORAL dyspepsia 03/10/17 07:30 04/09/17 07:29 Aspirin (Ecotrin) 81 mg DAILY ORAL 03/10/17 09:00 04/09/17 08:59 03/18/17 08:23 Escitalopram Oxalate (Lexapro) 20 mg DAILY ORAL 03/12/17 09:00 04/11/17 08:59 03/18/17 08:22 Finasteride (Proscar) 5 mg DAILY ORAL 03/10/17 09:00 04/09/17 08:59 03/18/17 08:23 Fluconazole 50 ml @ 50 mls/hr Q24H IV 03/10/17 14:00 03/19/17 23:59 03/17/17 14:30 Heparin Sodium (Porcine) (Heparin 5000 units/ml) 5,000 units EVERY 12 HOURS SUBQ 03/10/17 09:00 04/09/17 08:59 03/18/17 08:29 Lorazepam (Ativan) 1 mg Q6H PRN ORAL For Anxiety 03/11/17 21:30 03/18/17 21:29 03/18/17 08:30 Nitroglycerin (Ntg) 0.4 mg Q5M PRN SL Prn Chest Pain 03/10/17 07:30 04/09/17 07:29 Ondansetron HCl (Zofran) 4 mg Q6H PRN IVP Nausea & Vomiting 03/10/17 07:30 04/09/17 07:29 Polyethylene Glycol (Miralax) 17 gm DAILYPRN PRN ORAL Constipation 03/10/17 07:30 04/09/17 07:29 Promethazine HCl/ Codeine (Phenergan with Codeine) 5 ml Q4H PRN ORAL For Cough 03/10/17 07:30 04/09/17 07:29 03/12/17 09:30 Tamsulosin HCl (Flomax) 0.4 mg BEDTIME ORAL 03/10/17 21:00 04/09/17 20:59 03/17/17 21:05 YANDY PASTOR M.D. Mar 18, 2017 10:38
[2017-03-18 12:00] VITALS: BP 141/78
[2017-03-18] MEDS ORDERED: NS 275ml ONE (15:18)
[2017-03-18] MEDS ORDERED: Tubing IV Secondary IV ONE (15:18)
[2017-03-18 15:50] VITALS: BP 110/67
--- NOTE | 2017-03-18 16:21 | Pulmonology Progress Note ---
Assessment/Plan Problems: (1) Pneumonia (2) COPD (chronic obstructive pulmonary disease) (3) Laryngeal cancer (4) CAD (coronary artery disease) Assessment/Plan respiratory treatment continue abx, on diflucan now check cultures titrate fio2 chest pt all notes and meds reviewed dc planning in progress. family wants home with HH Subjective ROS Limited/Unobtainable: No Constitutional: Reports: no symptoms HEENT: Repors: no symptoms Respiratory: Reports: no symptoms Allergies: Coded Allergies: SULFA (SULFONAMIDE ANTIBIOTICS) (Unverified Allergy, Unknown, 03/10/17) Objective Last 24 Hour Vital Signs Date Time Temp Pulse Resp B/P (MAP) Pulse Ox O2 Delivery O2 Flow Rate FiO2 03/18/17 15:50 97.0 68 22 110/67 98 Nasal Cannula 2.0 03/18/17 12:00 97.5 61 20 141/78 99 03/18/17 08:00 98.1 72 20 119/74 98 03/18/17 07:54 90 18 Room Air 03/18/17 07:54 96 Room Air 03/18/17 07:54 Room Air 03/18/17 04:00 97.9 89 20 111/78 96 03/18/17 00:00 96.6 51 20 143/85 95 03/17/17 20:15 65 19 Room Air 03/17/17 20:15 Room Air 03/17/17 20:15 94 Room Air 03/17/17 20:13 97.5 60 18 141/77 94 Intake and Output 03/17/17 03/18/17 19:00 07:00 Intake Total 900 ml 400 ml Output Total 1700 ml 500 ml Balance -800 ml -100 ml Intake Oral 850 ml 400 ml IV Total 50 ml Output Urine Total 1700 ml 500 ml # Bowel Movements 2 Objective General Appearance: WD/WN HEENT: normocephalic, atraumatic Respiratory/Chest: chest wall non-tender, lungs clear Cardiovascular: normal peripheral pulses, normal rate Abdomen: normal bowel sounds, soft, non tender Genitourinary: normal external genitalia Extremities: no cyanosis 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, no motor/sensory deficits Lymphatic: no neck adenopathy Current Medications Medications (Trade) Dose Ordered Sig/Solis Route PRN Reason Start Time Stop Time Status Last Admin Dose Admin Acetaminophen (Tylenol) 650 mg Q4H PRN ORAL fever 03/10/17 07:30 04/09/17 07:29 Al Hydroxide/Mg Hydroxide (Mylanta II) 30 ml Q6H PRN ORAL dyspepsia 03/10/17 07:30 04/09/17 07:29 Aspirin (Ecotrin) 81 mg DAILY ORAL 03/10/17 09:00 04/09/17 08:59 03/18/17 08:23 Escitalopram Oxalate (Lexapro) 20 mg DAILY ORAL 03/12/17 09:00 04/11/17 08:59 03/18/17 08:22 Finasteride (Proscar) 5 mg DAILY ORAL 03/10/17 09:00 04/09/17 08:59 03/18/17 08:23 Fluconazole 50 ml @ 50 mls/hr Q24H IV 03/10/17 14:00 03/19/17 23:59 03/18/17 12:44 Heparin Sodium (Porcine) (Heparin 5000 units/ml) 5,000 units EVERY 12 HOURS SUBQ 03/10/17 09:00 04/09/17 08:59 03/18/17 08:29 Lorazepam (Ativan) 1 mg Q6H PRN ORAL For Anxiety 03/11/17 21:30 03/18/17 21:29 03/18/17 08:30 Nitroglycerin (Ntg) 0.4 mg Q5M PRN SL Prn Chest Pain 03/10/17 07:30 04/09/17 07:29 Ondansetron HCl (Zofran) 4 mg Q6H PRN IVP Nausea & Vomiting 03/10/17 07:30 04/09/17 07:29 Polyethylene Glycol (Miralax) 17 gm DAILYPRN PRN ORAL Constipation 03/10/17 07:30 04/09/17 07:29 Promethazine HCl/ Codeine (Phenergan with Codeine) 5 ml Q4H PRN ORAL For Cough 03/10/17 07:30 04/09/17 07:29 03/12/17 09:30 Tamsulosin HCl (Flomax) 0.4 mg BEDTIME ORAL 03/10/17 21:00 04/09/17 20:59 03/17/17 21:05 QIAN GARCIA Mar 18, 2017 16:21
[2017-03-18 20:00] VITALS: BP 123/68
[2017-03-18] MEDS: Tamsulosin 0.4mg cap ORAL SCH (20:28)
[2017-03-19] VITALS: BP 130/63
[2017-03-19 04:00] VITALS: BP 144/67
[2017-03-19 08:00] VITALS: BP 109/70
[2017-03-19] MEDS: Aspirin EC 81mg tab ORAL SCH (08:49)
[2017-03-19] MEDS: Heparin 5000 units/ml inj SUBQ SCH ×2 (08:50→20:53)
[2017-03-19 12:00] VITALS: BP 120/66
--- NOTE | 2017-03-19 15:36 | Pulmonology Progress Note ---
Assessment/Plan Problems: (1) Pneumonia (2) COPD (chronic obstructive pulmonary disease) (3) Laryngeal cancer (4) CAD (coronary artery disease) Assessment/Plan respiratory treatment afebrile WBC wnl check cultures, maura in sputum titrate fio2 chest pt all notes and meds reviewed pt's wanted HH, then the daughter [facility], which do[facility]'t take indigent people like this pt who have Medi/medi. Family ignorant of this fact. They want to wait until [facility] changes its policies and start admitting pts with Medical. Subjective ROS Limited/Unobtainable: No Constitutional: Reports: no symptoms HEENT: Repors: no symptoms Respiratory: Reports: no symptoms Allergies: Coded Allergies: SULFA (SULFONAMIDE ANTIBIOTICS) (Unverified Allergy, Unknown, 03/10/17) Objective Last 24 Hour Vital Signs Date Time Temp Pulse Resp B/P (MAP) Pulse Ox O2 Delivery O2 Flow Rate FiO2 03/19/17 08:00 96.9 70 18 109/70 03/19/17 07:25 68 18 Room Air 21 03/19/17 04:01 Room Air 03/19/17 04:00 97.3 57 20 144/67 98 03/19/17 00:01 Room Air 03/19/17 00:00 96.1 58 20 130/63 96 Room Air 03/18/17 20:41 Room Air 03/18/17 20:40 95 Room Air 03/18/17 20:40 60 2 Room Air 03/18/17 20:01 Room Air 03/18/17 20:00 97.3 60 20 123/68 95 Room Air 03/18/17 15:50 97.0 68 22 110/67 98 Nasal Cannula 2.0 Intake and Output 03/18/17 03/19/17 19:00 07:00 Intake Total 480 ml 450 ml Output Total 300 ml 600 ml Balance 180 ml -150 ml Intake Oral 480 ml 450 ml Output Urine Total 300 ml 600 ml # Voids 1 Objective General Appearance: WD/WN HEENT: normocephalic, atraumatic Respiratory/Chest: chest wall non-tender, lungs clear Cardiovascular: normal peripheral pulses, normal rate Abdomen: normal bowel sounds, soft, non tender Genitourinary: normal external genitalia Extremities: no cyanosis 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, no motor/sensory deficits Lymphatic: no neck adenopathy Current Medications Medications (Trade) Dose Ordered Sig/Solis Route PRN Reason Start Time Stop Time Status Last Admin Dose Admin Acetaminophen (Tylenol) 650 mg Q4H PRN ORAL fever 03/10/17 07:30 04/09/17 07:29 Al Hydroxide/Mg Hydroxide (Mylanta II) 30 ml Q6H PRN ORAL dyspepsia 03/10/17 07:30 04/09/17 07:29 Aspirin (Ecotrin) 81 mg DAILY ORAL 03/10/17 09:00 04/09/17 08:59 03/19/17 08:49 Escitalopram Oxalate (Lexapro) 20 mg DAILY ORAL 03/12/17 09:00 04/11/17 08:59 03/19/17 08:49 Finasteride (Proscar) 5 mg DAILY ORAL 03/10/17 09:00 04/09/17 08:59 03/19/17 08:49 Fluconazole 50 ml @ 50 mls/hr Q24H IV 03/10/17 14:00 03/19/17 23:59 03/19/17 14:38 Heparin Sodium (Porcine) (Heparin 5000 units/ml) 5,000 units EVERY 12 HOURS SUBQ 03/10/17 09:00 04/09/17 08:59 03/19/17 08:50 Nitroglycerin (Ntg) 0.4 mg Q5M PRN SL Prn Chest Pain 03/10/17 07:30 04/09/17 07:29 Ondansetron HCl (Zofran) 4 mg Q6H PRN IVP Nausea & Vomiting 03/10/17 07:30 04/09/17 07:29 Polyethylene Glycol (Miralax) 17 gm DAILYPRN PRN ORAL Constipation 03/10/17 07:30 04/09/17 07:29 Promethazine HCl/ Codeine (Phenergan with Codeine) 5 ml Q4H PRN ORAL For Cough 03/10/17 07:30 04/09/17 07:29 03/12/17 09:30 Tamsulosin HCl (Flomax) 0.4 mg BEDTIME ORAL 03/10/17 21:00 04/09/17 20:59 03/18/17 20:28 QIAN GARCIA Mar 19, 2017 15:36
[2017-03-19 16:00] VITALS: BP 124/79
--- NOTE | 2017-03-19 16:32 | General Progress Note ---
Assessment/Plan Assessment/Plan mdd anxiety Hypoxia Pneumonia -cont current meds Subjective Date patient seen: Mar 19, 2017 Neurologic/Psychiatric: Reports: anxiety, depressed, emotional problems Allergies: Coded Allergies: SULFA (SULFONAMIDE ANTIBIOTICS) (Unverified Allergy, Unknown, 03/10/17) Objective Last 24 Hour Vital Signs Date Time Temp Pulse Resp B/P (MAP) Pulse Ox O2 Delivery O2 Flow Rate FiO2 03/19/17 08:00 96.9 70 18 109/70 03/19/17 07:25 68 18 Room Air 21 03/19/17 04:01 Room Air 03/19/17 04:00 97.3 57 20 144/67 98 03/19/17 00:01 Room Air 03/19/17 00:00 96.1 58 20 130/63 96 Room Air 03/18/17 20:41 Room Air 03/18/17 20:40 95 Room Air 03/18/17 20:40 60 2 Room Air 03/18/17 20:01 Room Air 03/18/17 20:00 97.3 60 20 123/68 95 Room Air Intake and Output 03/18/17 03/19/17 19:00 07:00 Intake Total 480 ml 450 ml Output Total 300 ml 600 ml Balance 180 ml -150 ml Intake Oral 480 ml 450 ml Output Urine Total 300 ml 600 ml # Voids 1 Height (Feet): 5 Height (Inches): 6.00 Weight (Pounds): 137 General Appearance: no apparent distress, alert Neurologic: alert, oriented x 3, responsive, depressed affect Catie Killian M.D. Mar 19, 2017 16:32
[2017-03-19 20:00] VITALS: BP 122/64
[2017-03-19] MEDS: Tamsulosin 0.4mg cap ORAL SCH (20:53)
[2017-03-20] VITALS: BP 112/68
[2017-03-20 08:00] VITALS: BP 115/66
[2017-03-20] MEDS: Aspirin EC 81mg tab ORAL SCH (08:34)
[2017-03-20] MEDS: Heparin 5000 units/ml inj SUBQ SCH (08:34)
--- NOTE | 2017-03-20 10:59 | Infectious Diseases Prog Note ---
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 Oral thrush SP RX doubt urinary tract infection. Ucx mixed growth CRP 11.9 Throat and ? lung cancer Chronic knee pain depression. PLAN: Monitor pt off of AB Rx 03/19 SP Diflucan d# 10 03/16 SP Levaquin d# 7 / 7 and Flagyl # 3 /3, 03/14 SP Zosyn #5 (DCed given leukopenia) Monitor CBC. Monitor BMP Monitor chest x-ray. Subjective Constitutional: Denies: no symptoms, fever, chills, fatigue, anorexia, drenching sweats, other Allergies: Coded Allergies: SULFA (SULFONAMIDE ANTIBIOTICS) (Unverified Allergy, Unknown, 03/10/17) Subjective afebrile Objective Vital Signs Last 24 Hour Vital Signs Date Time Temp Pulse Resp B/P (MAP) Pulse Ox O2 Delivery O2 Flow Rate FiO2 03/20/17 08:00 98.8 66 20 115/66 96 03/20/17 07:00 64 18 Room Air 21 03/20/17 00:00 97.2 62 20 112/68 95 Room Air 03/19/17 20:00 97.3 62 19 122/64 98 Room Air 03/19/17 19:17 59 18 Room Air 21 03/19/17 16:00 98.0 63 20 124/79 98 03/19/17 12:00 97.9 100 20 120/66 97 Room Air Height (Feet): 5 Height (Inches): 6.00 Weight (Pounds): 137 HEENT: atraumatic Respiratory/Chest: no respiratory distress Cardiovascular: regularly irregular Abdomen: no organomegaly Current Medications Medications (Trade) Dose Ordered Sig/Solis Route PRN Reason Start Time Stop Time Status Last Admin Dose Admin Acetaminophen (Tylenol) 650 mg Q4H PRN ORAL fever 03/10/17 07:30 04/09/17 07:29 Al Hydroxide/Mg Hydroxide (Mylanta II) 30 ml Q6H PRN ORAL dyspepsia 03/10/17 07:30 04/09/17 07:29 Aspirin (Ecotrin) 81 mg DAILY ORAL 03/10/17 09:00 04/09/17 08:59 03/20/17 08:34 Escitalopram Oxalate (Lexapro) 20 mg DAILY ORAL 03/12/17 09:00 04/11/17 08:59 03/20/17 08:34 Finasteride (Proscar) 5 mg DAILY ORAL 03/10/17 09:00 04/09/17 08:59 03/20/17 08:34 Heparin Sodium (Porcine) (Heparin 5000 units/ml) 5,000 units EVERY 12 HOURS SUBQ 03/10/17 09:00 04/09/17 08:59 03/20/17 08:34 Nitroglycerin (Ntg) 0.4 mg Q5M PRN SL Prn Chest Pain 03/10/17 07:30 04/09/17 07:29 Ondansetron HCl (Zofran) 4 mg Q6H PRN IVP Nausea & Vomiting 03/10/17 07:30 04/09/17 07:29 Polyethylene Glycol (Miralax) 17 gm DAILYPRN PRN ORAL Constipation 03/10/17 07:30 04/09/17 07:29 Promethazine HCl/ Codeine (Phenergan with Codeine) 5 ml Q4H PRN ORAL For Cough 03/10/17 07:30 04/09/17 07:29 03/12/17 09:30 Tamsulosin HCl (Flomax) 0.4 mg BEDTIME ORAL 03/10/17 21:00 04/09/17 20:59 03/19/17 20:53 Temazepam (Restoril) 15 mg HSPRN PRN ORAL Insomnia 03/20/17 06:45 03/27/17 06:44 YANDY PASTOR M.D. Mar 20, 2017 10:59
[2017-03-20 12:00] VITALS: BP 136/64
--- NOTE | 2017-03-20 15:04 | Pulmonology Progress Note ---
Assessment/Plan Problems: (1) Pneumonia (2) COPD (chronic obstructive pulmonary disease) (3) Laryngeal cancer (4) CAD (coronary artery disease) Assessment/Plan respiratory treatment afebrile WBC wnl check cultures, maura in sputum titrate fio2 chest pt all notes and meds reviewed family agreed to take the pt home Subjective ROS Limited/Unobtainable: No Constitutional: Reports: no symptoms HEENT: Repors: no symptoms Respiratory: Reports: no symptoms Allergies: Coded Allergies: SULFA (SULFONAMIDE ANTIBIOTICS) (Unverified Allergy, Unknown, 03/10/17) Objective Last 24 Hour Vital Signs Date Time Temp Pulse Resp B/P (MAP) Pulse Ox O2 Delivery O2 Flow Rate FiO2 03/20/17 12:00 97.2 59 18 136/64 03/20/17 08:00 98.8 66 20 115/66 96 03/20/17 07:00 64 18 Room Air 21 03/20/17 00:00 97.2 62 20 112/68 95 Room Air 03/19/17 20:00 97.3 62 19 122/64 98 Room Air 03/19/17 19:17 59 18 Room Air 21 03/19/17 16:00 98.0 63 20 124/79 98 Intake and Output 03/19/17 03/20/17 19:00 07:00 Intake Total 590 ml Output Total 650 ml Balance 590 ml -650 ml Intake Oral 540 ml IV Total 50 ml Output Urine Total 650 ml # Voids 6 # Bowel Movements 1 Objective General Appearance: WD/WN HEENT: normocephalic, atraumatic Respiratory/Chest: chest wall non-tender, lungs clear Cardiovascular: normal peripheral pulses, normal rate Abdomen: normal bowel sounds, soft, non tender Genitourinary: normal external genitalia Extremities: no cyanosis 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, no motor/sensory deficits Lymphatic: no neck adenopathy Current Medications Medications (Trade) Dose Ordered Sig/Solis Route PRN Reason Start Time Stop Time Status Last Admin Dose Admin Acetaminophen (Tylenol) 650 mg Q4H PRN ORAL fever 03/10/17 07:30 04/09/17 07:29 Al Hydroxide/Mg Hydroxide (Mylanta II) 30 ml Q6H PRN ORAL dyspepsia 03/10/17 07:30 04/09/17 07:29 Aspirin (Ecotrin) 81 mg DAILY ORAL 03/10/17 09:00 04/09/17 08:59 03/20/17 08:34 Escitalopram Oxalate (Lexapro) 20 mg DAILY ORAL 03/12/17 09:00 04/11/17 08:59 03/20/17 08:34 Finasteride (Proscar) 5 mg DAILY ORAL 03/10/17 09:00 04/09/17 08:59 03/20/17 08:34 Heparin Sodium (Porcine) (Heparin 5000 units/ml) 5,000 units EVERY 12 HOURS SUBQ 03/10/17 09:00 04/09/17 08:59 03/20/17 08:34 Nitroglycerin (Ntg) 0.4 mg Q5M PRN SL Prn Chest Pain 03/10/17 07:30 04/09/17 07:29 Ondansetron HCl (Zofran) 4 mg Q6H PRN IVP Nausea & Vomiting 03/10/17 07:30 04/09/17 07:29 Polyethylene Glycol (Miralax) 17 gm DAILYPRN PRN ORAL Constipation 03/10/17 07:30 04/09/17 07:29 Promethazine HCl/ Codeine (Phenergan with Codeine) 5 ml Q4H PRN ORAL For Cough 03/10/17 07:30 04/09/17 07:29 03/12/17 09:30 Tamsulosin HCl (Flomax) 0.4 mg BEDTIME ORAL 03/10/17 21:00 04/09/17 20:59 03/19/17 20:53 Temazepam (Restoril) 15 mg HSPRN PRN ORAL Insomnia 03/20/17 06:45 03/27/17 06:44 QIAN GARCIA Mar 20, 2017 15:03
--- NOTE | 2017-03-20 16:05 | General Progress Note ---
Assessment/Plan Status: stable, progressing Assessment/Plan mdd anxiety Hypoxia Pneumonia -cont current meds Subjective Date patient seen: Mar 20, 2017 Neurologic/Psychiatric: Reports: anxiety, depressed, emotional problems Allergies: Coded Allergies: SULFA (SULFONAMIDE ANTIBIOTICS) (Unverified Allergy, Unknown, 03/10/17) Objective Last 24 Hour Vital Signs Date Time Temp Pulse Resp B/P (MAP) Pulse Ox O2 Delivery O2 Flow Rate FiO2 03/20/17 12:00 97.2 59 18 136/64 03/20/17 08:00 98.8 66 20 115/66 96 03/20/17 07:00 64 18 Room Air 21 03/20/17 00:00 97.2 62 20 112/68 95 Room Air 03/19/17 20:00 97.3 62 19 122/64 98 Room Air 03/19/17 19:17 59 18 Room Air 21 Intake and Output 03/19/17 03/20/17 19:00 07:00 Intake Total 590 ml Output Total 650 ml Balance 590 ml -650 ml Intake Oral 540 ml IV Total 50 ml Output Urine Total 650 ml # Voids 6 # Bowel Movements 1 Height (Feet): 5 Height (Inches): 6.00 Weight (Pounds): 137 General Appearance: no apparent distress, alert Neurologic: alert, oriented x 3, responsive, depressed affect Catie Killian M.D. Mar 20, 2017 16:05
--- NOTE | 2017-03-23 09:28 | Discharge Summary ---
Discharge Summary Hospital Course Date of Admission Mar 10, 2017 at 01:41 Date of Discharge Mar 20, 2017 at 15:05 Admitting Diagnosis DYSPNEA,HYPOXIA HPI Clara Tavarez is a 82 year old male who was admitted on Mar 10, 2017 at 01:41 for Dyspnea,Hypoxia Hospital Course [facility] [id number] Discharge Medications New Medications: Fluconazole (Fluconazole) 100 Mg Tablet 100 MG ORAL DAILY for 5 Days, #7 TAB 0 Refills Continued Medications: Aspirin* (Aspir 81*) 81 Mg Tablet.dr 81 MG ORAL DAILY, TAB Budesonide/Formoterol Fumarate (Symbicort 160-4.5 Mcg Inhaler) 10.2 Gm Hfa.aer.ad 1 PUFF IH, #1 INH 0 Refills Escitalopram Oxalate* (Lexapro*) 10 Mg Tablet 10 MG ORAL DAILY, TAB Finasteride* (Proscar*) 5 Mg Tablet 5 MG ORAL DAILY, #30 TAB 0 Refills Lubiprostone (Amitiza*) 24 Mcg Capsule 24 MCG ORAL EVERY 12 HOURS, CAP Tamsulosin Hcl (Tamsulosin Hcl*) 0.4 Mg Cap.er.24h 0.4 MG ORAL BEDTIME, CAP Discharge Condition Upon Discharge: stable Discharge Disposition Patient was discharged to Home with Home Health(06) Discharge Diagnoses: Rubén (Yassine)Kathi NP Mar 23, 2017 09:28
--- NOTE | 2017-03-24 03:30 | Discharge Summary 2 SIG ---
DATE OF ADMISSION: 03/10/2017 DATE OF DISCHARGE: 03/20/2017 REASON FOR ADMISSION: 82-year-old male with history of laryngeal CA, COPD, and lung cancer, presented to emergency department with chief complaint of shortness of breath and fever/ The patient appeared to be short of breath throughout the day, worse at night. No chest pain. No back or flank pain. reported chronic cough. No obvious change from the baseline. In the emergency department, the patient was febrile - 101.8 and pulse oximetry was 93% on the room air. The patient had leukocytosis - 14.6, stable hemoglobin and hematocrit. Lactic acid- 0.8. Troponin negative. EKG revealed sinus rhythm. Chest x-ray revealed increased markings in bilateral lower lobes, especially right lower lobe, possible pneumonia. The patient admitted for further management with possible sepsis, pneumonia and hypoxia. HOSPITAL COURSE: The patient admitted. The patient was on supplemental oxygen, which was titrated to keep pulse oximetry above 92%. Pulmonary toilet was provided by means of handheld nebulizing treatment and chest physical therapy. ID specialist closely followed. The patient was on empiric antibiotics and fluconazole for treatment of pneumonia and oral thrush. Sputum culture showed Sandra, per ID was colonizer. Urine culture revealed mixed gram-positive organism and ID doubted urinary tract infection. Blood culture were negative. The patient was on low-dose steroids. Antitussive provided as needed. Followup chest x-ray revealed trace right pleural effusion, no pneumothorax, no acute osseous abnormality, but increased interstitial opacification/edema. Influenza screen was negative. DVT prophylaxis provided. Bowel regimen instituted. Pain management provided. Flomax continued. Aspirin continued. Psychiatrist had seen and evaluated the patient, diagnosed the patient with major depressive disorder and anxiety disorder, and started the patient on Lexapro. After initial fever and leukocytosis, the patient was leukopenic. Leukopenia resolved on 03/16/2017: WBC down to normal - 8.1. Fever resolved after one day. Prior to discharge, the patient was ambulatory and pulse oximetry was stable with ambulation. The patient was stable for discharge home. FINAL DIAGNOSES: 1. Possible sepsis due to pneumonia ( with initial fever, leukocytosis). 2. Pneumonia. 3. Chronic obstructive pulmonary disease. 4. Oral thrush, status post treatment. 5. Laryngeal carcinoma. 6. Questionable lung carcinoma. 7. Coronary artery disease. 8. Major depression disorder. 9. Anxiety disorder. 10. Benign prostatic hypertrophy. 11. Chronic knee pain. DISCHARGE MEDICATIONS: See medication reconciliation list. DISCHARGE INSTRUCTIONS: The patient was discharged home. Follow up with primary medical doctor next week. Lew Lowe M.D. Kathi EcholsUniversity Of Vermont Health NetworkRodney N.PClaudia DR: FAUSTO JOB#: [id number] CC: CHAR
== END 2017-03-20 15:05 | disposition home health service (06) | DRG 178 ==
LOC: EDBD 00:51 → EDUNIT# 00:51 → EMR 01:05 → 4E 01:41 → EDBEDREQSVC 04:41 → EDBEDREQ 04:41 → 4E 10:01
DX: B37.1 Pulmonary candidiasis (principal); C34.90 Malignant neoplasm of unspecified part of unspecified bronchus or lung; J44.9 Chronic obstructive pulmonary disease, unspecified; C32.9 Malignant neoplasm of larynx, unspecified; B37.0 Candidal stomatitis; R09.02 Hypoxemia; I25.10 Atherosclerotic heart disease of native coronary artery without angina pectoris; N40.0 Benign prostatic hyperplasia without lower urinary tract symptoms; G89.29 Other chronic pain; M25.569 Pain in unspecified knee; F32.9 Major depressive disorder, single episode, unspecified; F41.9 Anxiety disorder, unspecified; Z88.2 Allergy status to sulfonamides
CPT/HCPCS: 36415; 71045; 74230; 80048; 80053; 80069; 82550; 82553; 83605; 83690; 83735; 83880; 84100; 84484; 85007; 85025; 86140; 86710; 87040; 87070; 87086; 87205; 93005; 94640; 94664; 94760; 99285; J7620